=== PATIENT | male | born 1950 | race Caucasian/White ===

== ENCOUNTER → 2020-08-12 13:02 | Outpatient (CLI) | payer MEDICARE, OTHER, SELFPAY ==
--- NOTE | 2020-08-12 14:42 | DI.MRI.S_ITS ---
PROCEDURE: MR LUMBAR SPINE WO CON INDICATIONS: Left side sciatica w/ weakness TECHNIQUE: Noncontrast sagittal T1 spin echo and T2 fast echo, sagittal STIR, axial T1 and T2 fast spin echo through the lumbar spine. In cases with scoliosis, additional coronal T2 fast spin echo may be performed. COMPARISON: None. FINDINGS: Image quality: Excellent. Alignment and Curvature: No plain films are available for comparison, for numbering purposes. Thus, for the purposes of this examination, 5 lumbar type vertebral bodies will be presumed, as denoted on the montage panel. This should be confirmed and correlated with plain films, prior to any lumbar spinal intervention. There is loss of normal lumbar lordosis. There is mild grade 1 retrolisthesis of L2 on L3, L3 on L4, and L4 on L5. Bone Marrow: Marrow is of normal overall signal. No acute vertebral body compression fractures. Minimal reactive signal within the endplates adjacent to the L2-L3, L3-L4, and L4-L5 intervertebral discs. Spinal Cord: Conus medullaris terminates at the L1-L2 disc space level. Visualized cord demonstrates normal signal and size. Paraspinous Soft Tissues: No paravertebral masses. T12-L1: Mild facet and ligamentum flavum hypertrophy. No significant canal stenosis. Mild bilateral foraminal stenosis. L1-L2: Mild disc desiccation and diffuse disc bulge. Mild facet and ligamentum flavum hypertrophy. Mild epidural lipomatosis. Mild canal stenosis. Mild bilateral foraminal stenosis. L2-L3: Mild disc desiccation and diffuse disc bulge. Mild facet and ligamentum flavum hypertrophy. Mild epidural lipomatosis. Mild canal stenosis. Mild bilateral foraminal stenosis. L3-L4: Mild disc height loss and desiccation. Mild diffuse disc bulge with superimposed left posterolateral/intraforaminal disc extrusion, measuring roughly 10 mm craniocaudal by 6 mm anteroposterior by roughly 5 mm transverse. Mild facet and ligamentum flavum hypertrophy. Mild canal stenosis. Severe left and mild right foraminal stenosis. Left L3 nerve root compression. L4-L5: Moderate disc height loss and desiccation. Mild diffuse disc bulge. Mild facet and ligamentum flavum hypertrophy bilaterally. Mild canal stenosis. Moderate to severe right greater than left foraminal stenosis with mild right greater than left L4 nerve root compression. L5-S1: Mild disc desiccation and diffuse disc bulge. No significant canal, or foraminal stenosis. IMPRESSION: 1. 5 lumbar type vertebral bodies were presumed for the current report. Plain films of the lumbar spine are recommended for confirmation, prior to any lumbar spinal intervention. 2. Multilevel degenerative disc and facet disease, as well as ligamentum flavum hypertrophy and epidural lipomatosis. 3. Mild multilevel canal stenosis. 4. Multilevel foraminal stenoses, worst at L3-L4 and L4-L5 as described above where there is associated intraforaminal nerve root compression. Recommend correlation with clinical symptoms to ascertain relevance of these findings. Dictated by: Aleksey Castro M.D. on 08/12/2020 at 14:53 Approved by: Aleksey Castro M.D. on 08/12/2020 at 14:57
== END ==
PROVIDERS: Referring Provider Physician Assistant; Visit Provider Physician Assistant
DX: M51.16 Intervertebral disc disorders with radiculopathy, lumbar region (principal); M51.17 Intervertebral disc disorders with radiculopathy, lumbosacral region; M48.061 Spinal stenosis, lumbar region without neurogenic claudication; E88.2 Lipomatosis, not elsewhere classified
CPT/HCPCS: 72148

== ENCOUNTER → 2020-10-24 14:23 | Outpatient (CLI) | payer MEDICARE, OTHER, SELFPAY ==
--- NOTE | 2020-10-24 14:26 | DI.RAD.S_ITS ---
PROCEDURE: XR LUMBAR SPINE MIN 4V INDICATIONS: BACK PAIN TECHNIQUE: 5 views of the lumbar spine acquired, including flexion and extension views. COMPARISON: None. FINDINGS: Bones: 5 nonrib-bearing vertebrae are present. Trace multilevel retrolisthesis. Moderate multilevel disc degeneration, most notably at the L4-L5 and L5-S1 1 levels where there also is moderate facet joint arthropathy. No vertebral body compression fractures. No suspicious bony lesions. Soft tissues: Overlying bowel gas pattern is normal. No suspicious soft tissue calcifications. Cholecystectomy clips. Flexion/extension: There is normal range of motion, with preserved normal alignment. IMPRESSION: Multilevel spondylosis. Dictated by: Juan Alberto Joel RR Interpreted: Wilian Resendiz MD on 10/24/2020 at 14:39 Transcribed by: LAW on 10/24/2020 at 14:40 Approved by: Wilian Resendiz M.D. on 10/24/2020 at 15:21
== END ==
PROVIDERS: PCP Family Medicine; Referring Provider Family Medicine; Visit Provider Family Medicine
DX: M48.061 Spinal stenosis, lumbar region without neurogenic claudication (principal); M54.42 Lumbago with sciatica, left side; M47.816 Spondylosis without myelopathy or radiculopathy, lumbar region; M47.817 Spondylosis without myelopathy or radiculopathy, lumbosacral region; M51.26 Other intervertebral disc displacement, lumbar region
CPT/HCPCS: 72110; 99214

== ENCOUNTER → 2020-11-21 11:51 | Outpatient (CLI) | payer MEDICARE, OTHER, SELFPAY ==
[2020-11-21 21:08] LABS: COVID19 - ORCAS (NP or Nasal) Negative (Negative)
== END ==
PROVIDERS: PCP Family Medicine; Visit Provider Family Medicine
DX: Z20.822 Contact with and (suspected) exposure to COVID-19 (principal)
CPT/HCPCS: U0003

== ENCOUNTER 2020-11-22 09:27 | Outpatient (CLI) | payer MEDICARE, OTHER, SELFPAY ==
[2020-11-22] VITALS (9 sets, daily range): BP systolic 113–136; BP diastolic 56–70; PULSE 55–66; RESP 14–95; TEMP 36.6; O2SAT 94–98
--- NOTE | 2020-11-22 09:29 | DI.RAD.S_ITS ---
PROCEDURE: PAIN L/S TRANSFORAMINAL INJECT INDICATIONS: SPONDYLOSIS COMPARISON: None. FINDINGS: Fluoroscopic spot filming was performed to verify placement of spinal needles at the L3-L4 level(s), as labeled on the films. Appropriate location(s) of the needle tip(s) was confirmed by injection of iodinated contrast. Dictated by: Reynaldo Conroy M.D. on 11/28/2020 at 13:15 Approved by: Reynaldo Conroy M.D. on 11/28/2020 at 13:16
[2020-11-22] MEDS: fentaNYL 100 MCG/2 ML INJ 50 MCG IV (10:32)
[2020-11-22] MEDS: MIDAZOLAM 5 MG/5 ML VIAL IV (10:32)
[2020-11-22] MEDS: BUPIVACAINE 0.25% (PF) VIAL 2 ML INJ (10:40)
[2020-11-22] MEDS: IOPAMIDOL 15 ML VIAL 3 ML INJ (10:41)
[2020-11-22] MEDS: BETAMETHASONE 30 MG/5 ML MDV 6 MG INJ (10:41)
[2020-11-22] MEDS: DEXAMETHASONE 10 MG/ML VIAL 20 MG INJ (10:42)
--- NOTE | 2020-11-22 10:48 | P.PCN_ITS ---
Date/Time/Diagnoses Date of procedure: 11/22/20 Time of procedure: 10:48 Pre-procedure diagnosis: 1. FORAMINAL STENOSIS WITH LE SYMPTOMS Post-procedure diagnosis: same Procedure Notes Procedure: 1. FLUOROSCOPICALLY GUIDED CONTRAST CONTROLLED TRANSFORAMINAL EPIDURAL STEROID INJECTION - LEFT L3/4 TFESI Indications: Gaston is referred by Dr. Joy for treatment of Foraminal Stenosis with left LE Symptoms Physician: Anibal An Total Fluoroscopy time (seconds): 7 Total sedation minutes: 12 Complications: none Procedure in detail & Post-procedure care: FINDINGS Foraminal Nerve Root Compression secondary to disc disease and facet hypertrophy DESCRIPTION OF PROCEDURE Following review of allergy and review of potential side effects and complications, including, but not necessarily limited to, infection, allergic reaction, local tissue breakdown, stroke, temporary or permanent nerve injury, paralysis, and possible , the patient indicated that the patient understood and agreed to proceed. An informed consent document was signed by the patient, witnessed by a nurse, and placed in the patient's chart. Additionally, other treatment options including medications, modalities, and physical therapy were reviewed with the patient. After review of previous anaesthesic history and IV conscious sedation the patient was deemed safe to proceed with today?s procedure with IV conscious sedation as ASA class II designation. Safety time-out was performed to confirm patient ID, procedure to be performed and site of procedure. IV sedation was accomplished with a combination of 2mg of Versed and 50mcg of Fentanyl was administered by the RN after DO order, titrated to patient comfort during the course of the procedure while the patient remained responsive to all verbal commands In the prone position following sterile prep and drape of the lumbar region, the left L3/4 posterior neuroforamen was identified fluoroscopically. The skin was anesthetized via a 25-gauge 1.5-inch needle with 1% lidocaine solution. At this point, a 25-gauge 3.5-inch spinal needle was atraumatically introduced and advanced under fluoroscopic guidance through the posterior left L3/4 neurofora men to approximately the anterior aspect of the canal. Depth was confirmed on lateral view. Following negative aspiration, injection of approximately 1.5 cc of Isovue 200 under live fluoroscopy in the AP view confirmed excellent flow along the nerve root, into the epidural space without vascular or intrathecal uptake observed Radiological data, including multiple fluoroscopic views of the lumbosacral spine, reveal a spinal needle at the left L3/4 posterior neuroforamen. Subsequent views show flow of contrast material flowing superiorly and inferiorly along the nerve root confirming epidural flow. Subsequently, a test dose of 1.5cc of 1% lidocaine solution was administered and patient was observed for two minutes for signs or symptoms of complications, including abdominal pain, shortness of breath, bilateral upper or lower extremity weakness, nausea and vomiting, prior to steroid injection. At this point, a total of 3cc or 20mg of dexamethasone and 6mg betamethasone was inject ed without incident. The patient tolerated the procedure well without signs or symptoms of complications prior to transfer to the recovery area continued monitoring without incident. The patient was then transferred to the recovery area where they were observed for an appropriate time after the injection. The patient reported a VAS score of 7 prior to the procedure and a post-procedure VAS of 0. POST OP INSTRUCTIONS The patient was provided a Pain Log to continue to record their response to the target-specific procedure prior to follow-up visit with their referring physician. Additionally, specific post-injection care instructions and a contact number to our office were provided if concerns arise regarding possible complications associated with the procedure are suspected.
== END 2020-11-22 11:03 | disposition home or self-care (01) ==
LOC: RAD 09:28
PROVIDERS: PCP Family Medicine; Referring Provider Physical Medicine & Rehabilitation; Visit Provider Physical Medicine & Rehabilitation
DX: M48.061 Spinal stenosis, lumbar region without neurogenic claudication (principal); M51.16 Intervertebral disc disorders with radiculopathy, lumbar region
CPT/HCPCS: 64483; 99152; J0702; J1100; J2250; J3010

== ENCOUNTER 2020-12-14 21:43 | Emergency (ER) | payer MEDICARE, OTHER, SELFPAY ==
[2020-12-14] VITALS (14 sets, daily range): BP systolic 102–137; BP diastolic 53–76; PULSE 60–68; RESP 14–18; TEMP 36.6; O2SAT 96–100
--- NOTE | 2020-12-14 21:51 | DI.RAD.S_ITS ---
PROCEDURE: XR CHEST 1V INDICATIONS: chest pain TECHNIQUE: One view of the chest was acquired. COMPARISON: None. FINDINGS: Surgical changes and devices: None. Lungs and pleura: Lungs are clear. No pleural effusions or pneumothorax. Mediastinum: Mediastinal contours appear normal. Heart size is normal. Bones and chest wall: No suspicious bony lesions. Overlying soft tissues appear unremarkable. IMPRESSION: No acute cardiopulmonary disease process. Dictated by: Doris Cox MD, PhD on 12/15/2020 at 9:07 Approved by: Doris Cox MD, PhD on 12/15/2020 at 9:07
[2020-12-14 21:58] LABS: Add Manual Diff / Slide Review NO; Basophils Absolute Auto 0 /uL (0-100); Basophils Percent Auto 0.5 % (0-2); Eosinophils Absolute Auto 200 /uL (0-450); Eosinophils Percent Auto 2.2 % (2-4); Hematocrit 39.8 % (41-53); Hemoglobin 13.2 g/dL (13.5-17.5); Lymphocytes Absolute Auto 1300 /uL (1100-4500); Lymphocytes Percent Auto 13.4 % (25-40); Mean Corpuscular HGB Conc 33.2 % (30-36); Mean Corpuscular Hemoglobin 29.5 PG (26-34); Monocytes Absolute Auto 900 /uL (0-900); Monocytes Percent Auto 9.5 % (3-14); Neutrophils Absolute Auto 7400 /uL (1500-7000); Neutrophils Percent Auto 74.4 % (50-75); Platelet Count 258 X10^3/uL (150-400); Red Blood Cell Count 4.48 X10^6/uL (4.5-5.9); Red Cell Distribution Width 13.9 % (11.6-14.8)
[2020-12-14] MEDS: NITROGLYCERIN 0.4 MG SL TAB SL ×3 (21:59→22:13)
[2020-12-14 22:05] LABS: Alanine Aminotransferase 31 IU/L (<50); Albumin 4.1 g/dL (3.5-5.0); Albumin Globulin Ratio 1.5 (1.0-2.8); Alkaline Phosphatase 58 U/L (38-126); Aspartate Aminotransferase 35 IU/L (17-59); Bilirubin Total 0.4 mg/dL (0.2-1.3); Blood Urea Nitrogen 26 mg/dL (9-20); Calcium 9.1 mg/dL (8.4-10.2); Carbon Dioxide 26 mmol/L (22-32); Chloride 108 mmol/L (98-107); Creatine Kinase 85 U/L (55-170); Estimated Glomerular Filt Rate > 60.0 mL/min (>60); Globulin 2.7 g/dL (1.7-4.1); Glucose 100 mg/dL (80-110); HEMOLYSIS 28 (0-50); Lipase 228 U/L (23-300); Sodium 140 mmol/L (137-145); Total Protein 6.8 g/dL (6.3-8.2)
[2020-12-14 22:08] LABS: COVID19 -Nasal RAPID Negative (Negative)
[2020-12-14 22:16] LABS: Troponin I < 0.012 ng/mL (0.01-0.034)
--- NOTE | 2020-12-14 22:53 | ED_ITS ---
HPI - Chest Pain General Chief Complaint: Chest Pain Stated Complaint: chest pain Time Seen by Provider: 12/14/20 21:53 Source: patient Mode of arrival: Ambulatory History of Present Illness HPI narrative: 70-year-old gentleman with a history of a glaucoma presents with acute onset chest pain approximately 1-1/2 hours prior to arrival. He describes the pain as right-sided sharp radiating down the right arm and is now progressing up the neck bilaterally. He notes that he was was at his usual activity level which is quite active today he had been working on his roof when he began to develop the pain. Was not associated with orthopnea, dyspnea, nausea, diaphoresis. He notes that yesterday he when out for a hike with a 20 lb pack on which is something that he routinely does and describes being significantly more fatigued than he ever had been in the past. He has no prior history of cardiac disease, hypertension or stroke. [place] boat in to [employer]. EN route he took 1 full and 3 baby aspirin. He describes the pain is fairly consistent 3 to 4/10 since the onset. Related Data Home Medications Medication Instructions Recorded Confirmed latanoprost 0.005 % eye drops drp EYE-BOTH DAILY ml 08/03/20 10/24/20 cholecalciferol (vitamin D3) 50 50 mcg PO DAILY 10/24/20 10/24/20 mcg (2,000 unit) capsule Previous Rx's Medication Instructions Recorded gabapentin 300 mg capsule 300 mg PO .COMPLEX #90 cap 10/24/20 methylprednisolone 4 mg tablets in See Rx Instructions PO PER PKG DIR 10/24/20 a dose pack (Medrol (Bonifacio)) #21 ea colchicine 0.6 mg tablet 0.6 mg PO BID #90 tab 12/15/20 Allergies Allergy/AdvReac Type Severity Reaction Status Date / Time No Known Drug Allergies Allergy Verified 10/24/20 15:51 Review of Systems Review of Systems Narrative: Remainder of complete review of systems is otherwise unremarkable except for that included in the HPI. Patient History Medical History Back pain Chicken pox Foraminal stenosis of lumbar region Fractures (~1965) Glaucoma Hearing loss Herniated nucleus pulposus, L3-4 left History of elevated PSA (~2014) Lumbar spine pain Mumps Personal history of prostate cancer (~2014) Tinnitus Surgical History Anesthesia H/O radical prostatectomy (~2014) History of cholecystectomy (~2014) History of surgery on arm (~1964) Family History Mother Mental health problem Social History Smoking Status: Never smoker Smoking Status: Never smoker Exam Narrative Exam Narrative: General: Healthy appearing, in mild distress. Able to give a complete and coherent history. Well-nourished well-developed HEENT: Moist mucous membranes, normal sclera with reactive pupils, Neck: No JVD, supple Respiratory: Lungs are clear to auscultation, no wheezing no rales no rhonchi. Full and symmetrical air movement Cardiac: Regular rate and rhythm no murmurs no bruits Abdomen: Soft, nontender, good bowel tones, no flank pain Skin: Warm and dry, no rashes, no diaphoresis Neurologic: Grossly neurologically intact with no obvious asymmetries or abnormalities Extremities: No trauma, well perfused Psych: Cooperative, appropriate insight and affect Initial Vital Signs Initial Vital Signs: Vital Signs Pulse Rate 65 12/14/20 21:51 Respiratory Rate 16 12/14/20 21:51 Pulse Oximetry 98 12/14/20 21:51 Course Orders Ordered: ED Orders 12/14/20 21:46 COVID19 -Nasal swab/Pre-Proc Stat 12/14/20 21:49 EKG-12 Lead Stat 12/14/20 21:50 Complete Blood Count AUTO DIFF Stat Comprehensive Metabolic Panel Stat Lipase Stat Troponin & CK Cardiac Panel Stat 12/14/20 21:51 XR chest 1V Stat 12/15/20 00:06 EKG-12 Lead Stat 12/15/20 00:08 Trop I [Troponin I] Stat Discontinued Medications Colchicine (Colchicine 0.6 Mg Tablet) 0.6 mg PO NOW ONE Stop: 12/15/20 00:51 Last Admin: 12/15/20 01:05 Dose: 0.6 mg Documented by: SHANNA Ketorolac Tromethamine (Ketorolac 30 Mg/Ml Vial) 15 mg IV NOW ONE Stop: 12/14/20 23:10 Last Admin: 12/14/20 23:14 Dose: 15 mg Documented by: SHANNA Nitroglycerin (Nitroglycerin 0.4 Mg Sl Tab) 0.4 mg SL [id number] PRN PRN Reason: Chest Pain Last Admin: 12/14/20 22:13 Dose: 0.4 mg Documented by: Admin: 12/14/20 22:06 Dose: 0.4 mg Documented by: Admin: 12/14/20 21:59 Dose: 0.4 mg Documented by: OSVALDO Vital Signs Vital signs: Vital Signs - 8 hr 12/14/20 21:51 12/14/20 21:58 12/14/20 21:59 Temperature 97.9 F Pulse Rate 65 64 63 Respiratory Rate 16 18 Blood Pressure 137/76 137/76 Pulse Oximetry 98 100 12/14/20 22:00 12/14/20 22:06 12/14/20 22:10 Temperature Pulse Rate 62 65 67 Respiratory Rate 16 15 17 Blood Pressure 136/65 114/58 L 109/57 L Pulse Oximetry 97 96 97 12/14/20 22:13 12/14/20 22:15 12/14/20 22:20 Temperature Pulse Rate 68 64 66 Respiratory Rate 16 14 Blood Pressure 109/59 L 115/56 L 114/53 L Pulse Oximetry 96 96 12/14/20 22:25 12/14/20 22:30 12/14/20 22:35 Temperature Pulse Rate 64 61 60 Respiratory Rate 17 15 16 Blood Pressure 115/56 L 102/56 L 112/55 L Pulse Oximetry 97 96 97 12/14/20 22:40 12/14/20 22:45 Temperature Pulse Rate 61 60 Respiratory Rate 15 14 Blood Pressure 117/59 L 113/55 L Pulse Oximetry 97 97 MDM - Chest Pain Lab Data Result diagrams: 12/14/20 21:50 12/14/20 21:50 Labs: Lab Results 12/14/20 12/14/20 12/14/20 Range/Units 21:46 21:50 21:50 WBC 10.0 (4.5-11.0) X10^3/uL RBC 4.48 L (4.5-5.9) X10^6/uL Hgb 13.2 L (13.5-17.5) g/dL Hct 39.8 L (41-53) % MCV 89.0 (80-100) fL MCH 29.5 (26-34) PG MCHC 33.2 (30-36) % RDW 13.9 (11.6-14.8) % Plt Count 258 (150-400) X10^3/uL Neut % (Auto) 74.4 (50-75) % Lymph % (Auto) 13.4 L (25-40) % [place] % (Auto) 9.5 (3-14) % Eos % (Auto) 2.2 (2-4) % Baso % (Auto) 0.5 (0-2) % Neut # (Auto) 7400 H (6591-7753) /uL Lymph # (Auto) 1300 (8756-8951) /uL [place] # (Auto) 900 (0-900) /uL Eos # (Auto) 200 (0-450) /uL Baso # (Auto) 0 (0-100) /uL Sodium 140 (137-145) mmol/L Potassium 4.0 (3.4-5.1) mmol/L Chloride 108 H (98-107) mmol/L Carbon Dioxide 26 (22-32) mmol/L BUN 26 H (9-20) mg/dL Creatinine 0.65 L (0.66-1.25) mg/dL Estimated GFR > 60.0 (>60) mL/min BUN/Creatinine Ratio 40.0 H (6-22) Glucose 100 (80-110) mg/dL Calcium 9.1 (8.4-10.2) mg/dL Total Bilirubin 0.4 (0.2-1.3) mg/dL AST 35 (17-59) IU/L ALT 31 (<50) IU/L Alkaline Phosphatase 58 (38-126) U/L Total Creatine Kinase 85 (55-170) U/L CK-MB (CK-2) TNP CK-MB (CK-2) Rel Index TNP Troponin I < 0.012 (0.01-0.034) ng/mL Total Protein 6.8 (6.3-8.2) g/dL Albumin 4.1 (3.5-5.0) g/dL Globulin 2.7 (1.7-4.1) g/dL Albumin/Globulin Ratio 1.5 (1.0-2.8) Lipase 228 (23-300) U/L SARS-CoV-2 (PCR) Negative (Negative) 12/15/20 Range/Units 00:08 WBC (4.5-11.0) X10^3/uL RBC (4.5-5.9) X10^6/uL Hgb (13.5-17.5) g/dL Hct (41-53) % MCV (80-100) fL MCH (26-34) PG MCHC (30-36) % RDW (11.6-14.8) % Plt Count (150-400) X10^3/uL Neut % (Auto) (50-75) % Lymph % (Auto) (25-40) % [place] % (Auto) (3-14) % Eos % (Auto) (2-4) % Baso % (Auto) (0-2) % Neut # (Auto) (2638-2488) /uL Lymph # (Auto) (1094-3960) /uL [place] # (Auto) (0-900) /uL Eos # (Auto) (0-450) /uL Baso # (Auto) (0-100) /uL Sodium (137-145) mmol/L Potassium (3.4-5.1) mmol/L Chloride (98-107) mmol/L Carbon Dioxide (22-32) mmol/L BUN (9-20) mg/dL Creatinine (0.66-1.25) mg/dL Estimated GFR (>60) mL/min BUN/Creatinine Ratio (6-22) Glucose (80-110) mg/dL Calcium (8.4-10.2) mg/dL Total Bilirubin (0.2-1.3) mg/dL AST (17-59) IU/L ALT (<50) IU/L Alkaline Phosphatase (38-126) U/L Total Creatine Kinase (55-170) U/L CK-MB (CK-2) CK-MB (CK-2) Rel Index Troponin I < 0.012 (0.01-0.034) ng/mL Total Protein (6.3-8.2) g/dL Albumin (3.5-5.0) g/dL Globulin (1.7-4.1) g/dL Albumin/Globulin Ratio (1.0-2.8) Lipase (23-300) U/L SARS-CoV-2 (PCR) (Negative) Imaging Data Chest x-ray: Radiologist's Impression: No active cardiopulmonary pathology evident Nancy Araujo MD ECG Data Interpretation: Sinus rhythm at a rate of 64 Normal axis, normal intervals Diffuse ST elevation most leads repeat at 2150 Sinus rhythm at a rate of 58 Normal intervals normal axis Clear ST elevation in all leads consistent with acute pericarditis MDM Narrative Medical decision making narrative: 7-year-old gentleman presents with acute onset right-sided chest pain. Lab workup is unremarkable. First and 2nd troponins are unremarkable. No evidence of significant infiltrate or cardiomegaly on chest x-ray. No evidence of COVID and no recent infection. Initial EKG with mild ST elevation in most leads and repeat with significant ST elevation in all leads entirely consistent with the clinical presentation of pericarditis. He is improved after Toradol and is also started on colchicine. Care is briefly reviewed with Dr. Méndez. Recommended 3 weeks of aggressive nonsteroidals and colchicine dosing, 600 mg of ibuprofen 3 times a day and 0.6 mg of colchicine b.i.d.. Beginning slow taper after that as pain tolerates. If pain increases with taper than the patient will need to go back to the most recent dose where he was pain free. Will ask him to follow-up with his primary care physician and as long as he continues to improve likely will not need any additional cardiology intervention. All of this is explained to the patient, questions are answered and he is safe for home discharge Discharge Plan Departure Patient Disposition: Home Clinical Impression: Pericarditis Qualifiers: Pericarditis type: idiopathic Chronicity: acute Qualified Code(s): I30.0 - Acute nonspecific idiopathic pericarditis Instructions: DI for Pericarditis Activity Restrictions/Additional Instructions: Thank you for coming in today You do not have COVID, pneumonia, collapsed lung, heart attack or heart attack like syndrome. You do have pericarditis. Pericarditis is inflammation around the lining of your heart. It hurts in exactly the weight your describing and tends to resolve by itself. It can be associated with exercise, viruses and can be seen after heart attacks as well Treatment for this is directed at treating the inflammation. You will need fairly high doses of anti-inflammatories for the 1st 3 weeks and then you can taper them down as your pain allows. I am going to recommend ibuprofen 600 mg 3 times a day for 3 weeks and then slowly tapering down, decreasing by 1 pill a day, until you no longer needing the ibuprofen. The colchicine needs to be twice a day for the 1st 3 weeks and after that you can decrease to once daily for an additional 3 weeks - this prescription was electronically transmitted to [facility] at any point in decreasing the medication your symptoms are increasing, you need to return to the higher level for a few more days before attemping to resume tapering. Please follow-up with your primary care physician. As long as you are improving you likely will not need additional cardiology follow-up. If you are having increasing symptoms or additional problems Dr. Joy will likely assist you in arranging for Cardiology consultation. If you have any acute changes or findings or develop new symptoms, please return to the emergency department Prescriptions: New colchicine 0.6 mg tablet 0.6 mg PO BID Qty: 90 RF: 1 No Action latanoprost 0.005 % drops EYE-BOTH DAILY RF: 0 cholecalciferol (vitamin D3) 50 mcg (2,000 unit) capsule 50 mcg PO DAILY RF: 0 gabapentin 300 mg capsule 300 mg PO .COMPLEX Qty: 90 RF: 2 methylprednisolone [Medrol (Bonifacio)] 4 mg tablets,dose pack See Rx Instructions PO PER PKG DIR Qty: 21 RF: 0 Referrals: Shimon Joy, [Primary Care Provider] -
[2020-12-14] MEDS: KETOROLAC 30 MG/ML VIAL 15 MG IV (23:14)
[2020-12-15] VITALS (25 sets, daily range): BP systolic 96–112; BP diastolic 51–59; PULSE 55–60; RESP 16–23; O2SAT 96–97
[2020-12-15 00:35] LABS: Troponin I < 0.012 ng/mL (0.01-0.034)
[2020-12-15] MEDS: COLCHICINE 0.6 MG TABLET PO (01:05)
== END 2020-12-15 02:27 | disposition home or self-care (01) ==
PROVIDERS: Emergency Provider Emergency Medicine; PCP Family Medicine
DX: I30.0 Acute nonspecific idiopathic pericarditis (principal); Z20.822 Contact with and (suspected) exposure to COVID-19
CPT/HCPCS: 36415; 71045; 80053; 82550; 83690; 84484; 85025; 87635; 93005; 93010; 96374; 99284; C9803; J1885

== ENCOUNTER → 2021-03-13 13:03 | Outpatient (CLI) | payer MEDICARE, OTHER, SELFPAY ==
[2021-03-13 16:38] LABS: COVID19 -Nasal RAPID Negative (Negative)
== END ==
PROVIDERS: PCP Family Medicine; Referring Provider Physical Medicine & Rehabilitation; Visit Provider Physical Medicine & Rehabilitation
DX: Z20.822 Contact with and (suspected) exposure to COVID-19 (principal)
CPT/HCPCS: 87635; C9803

== ENCOUNTER 2021-03-14 10:01 | Outpatient (CLI) | payer MEDICARE, OTHER, SELFPAY ==
[2021-03-14] VITALS (8 sets, daily range): BP systolic 116–154; BP diastolic 69–74; PULSE 56–66; RESP 11–16; TEMP 36.7; O2SAT 99–100
--- NOTE | 2021-03-14 10:03 | DI.RAD.S_ITS ---
PROCEDURE: PAIN L/S TRANSFORAMINAL INJECT INDICATIONS: SPONDYLOSIS COMPARISON: [facility], , PAIN L/S TRANSFORAMINAL INJECT, 11/22/2020, 10:38. FINDINGS: Fluoroscopic spot filming was performed to verify placement of spinal needles on the left at the L3-L4 level and the L4-L5 level, as labeled on the films. Appropriate location of the needle tip was confirmed by injection of iodinated contrast. IMPRESSION: Intraprocedural examination within normal limits. Dictated by: Ruiz Bush M.D. on 03/14/2021 at 11:35 Approved by: Ruiz Bush M.D. on 03/14/2021 at 11:35
[2021-03-14] MEDS: MIDAZOLAM 5 MG/5 ML VIAL IV (11:28)
[2021-03-14] MEDS: fentaNYL 100 MCG/2 ML INJ 50 MCG IV (11:28)
[2021-03-14] MEDS: BUPIVACAINE 0.25% (PF) VIAL 2 ML INJ (11:33)
[2021-03-14] MEDS: IOPAMIDOL 15 ML VIAL 3 ML INJ (11:33)
[2021-03-14] MEDS: BETAMETHASONE 30 MG/5 ML MDV 12 MG INJ (11:34)
[2021-03-14] MEDS: DEXAMETHASONE 10 MG/ML VIAL 20 MG INJ (11:34)
--- NOTE | 2021-03-14 11:43 | P.PCN_ITS ---
Date/Time/Diagnoses Date of procedure: 03/14/21 Time of procedure: 11:43 Pre-procedure diagnosis: 1. FORAMINAL STENOSIS WITH LE SYMPTOMS Post-procedure diagnosis: same Procedure Notes Procedure: 1. FLUOROSCOPICALLY GUIDED CONTRAST CONTROLLED TRANSFORAMINAL EPIDURAL STEROID INJECTION - LEFT L4/5 Indications: Gaston is referred by Dr. Joy for treatment of Foraminal Stenosis with Left LE Symptoms Physician: Anibal An Total Fluoroscopy time (seconds): 9 Total sedation minutes: 9 Complications: none Procedure in detail & Post-procedure care: FINDINGS Foraminal Nerve Root Compression secondary to disc disease and facet hypertrophy DESCRIPTION OF PROCEDURE Following review of allergy and review of potential side effects and complications, including, but not necessarily limited to, infection, allergic reaction, local tissue breakdown, stroke, temporary or permanent nerve injury, paralysis, and possible , the patient indicated that the patient understood and agreed to proceed. An informed consent document was signed by the patient, witnessed by a nurse, and placed in the patient's chart. Additionally, other treatment options including medications, modalities, and physical therapy were reviewed with the patient. After review of previous anaesthesic history and IV conscious sedation the patient was deemed safe to proceed with today?s procedure with IV conscious sedation as ASA class II designation. Safety time-out was performed to confirm patient ID, procedure to be performed and site of procedure. IV sedation was accomplished with a combination of 2mg of Versed and 50mcg of Fentanyl administered by the RN after DO order, titrated to patient comfort during the course of the procedure while the patient remained responsive to all verbal commands In the prone position following sterile prep and drape of the lumbar region, the left L4/5 posterior neuroforamen was identified fluoroscopically. The skin was anesthetized via a 25-gauge 1.5-inch needle with 1% lidocaine solution. At this point, a 25-gauge 3.5-inch spinal needle was atraumatically introduced and advanced under fluoroscopic guidance through the posterior left L4/5 neuroforamen to approximately the anterior aspect of the canal. Depth was confirmed on lateral view. Following negative aspiration, injection of approximately 1.5 cc of Isovue 200 under live fluoroscopy in the AP view confirmed excellent flow along the nerve root, into the epidural space without vascular or intrathecal uptake observed Radiological data, including multiple fluoroscopic views of the lumbosacral spine, reveal a spinal needle at the left L4/5 posterior neuroforamen. Subsequent views show flow of contrast material flowing superiorly and inferiorly along the nerve root confirming epidural flow. Subsequently, a test dose of 1.5 cc of 1% lidocaine solution was administered and patient was observed for two minutes for signs or symptoms of complications, including abdominal pain, shortness of breath, bilateral upper or lower extremity weakness, nausea and vomiting, prior to steroid injection. At this point, a total of 3cc or 20mg of dexamethasone and 6mg of betamethasone was injected without incident. The procedure tolerated the procedure well without signs or symptoms of complications prior to transfer to the recovery area continued monitoring without incident. The patient was then transferred to the recovery area where they were observed for an appropriate time after the injection. The patient reported a VAS score of 7 prior to the procedure and a post- procedure VAS of 0. POST OP INSTRUCTIONS The patient was provided a Pain Log to continue to record their response to the target-specific procedure prior to follow-up visit with their referring physician. Additionally, specific post-injection care instructions and a contact number to our office were provided if concerns arise regarding possible complications associated with the procedure are suspected.
--- NOTE | 2021-03-14 11:44 | P.PCN_ITS ---
Date/Time/Diagnoses Date of procedure: 03/14/21 Time of procedure: 11:44 Pre-procedure diagnosis: 1. FORAMINAL STENOSIS WITH LE SYMPTOMS Post-procedure diagnosis: same Procedure Notes Procedure: 1. FLUOROSCOPICALLY GUIDED CONTRAST CONTROLLED TRANSFORAMINAL EPIDURAL STEROID INJECTION - LEFT L3/4 TFESI Indications: Gaston is referred by Dr. Joy for treatment of Foraminal Stenosis with left LE Symptoms Physician: Anibal An Total Fluoroscopy time (seconds): 9 Total sedation minutes: 9 Complications: none Procedure in detail & Post-procedure care: FINDINGS Foraminal Nerve Root Compression secondary to disc disease and facet hypertrophy DESCRIPTION OF PROCEDURE Following review of allergy and review of potential side effects and complications, including, but not necessarily limited to, infection, allergic reaction, local tissue breakdown, stroke, temporary or permanent nerve injury, paralysis, and possible , the patient indicated that the patient understood and agreed to proceed. An informed consent document was signed by the patient, witnessed by a nurse, and placed in the patient's chart. Additionally, other treatment options including medications, modalities, and physical therapy were reviewed with the patient. After review of previous anaesthesic history and IV conscious sedation the patient was deemed safe to proceed with today?s procedure with IV conscious sedation as ASA class II designation. Safety time-out was performed to confirm patient ID, procedure to be performed and site of procedure. IV sedation was accomplished with a combination of 2mg of Versed and 50mcg of Fentanyl was administered by the RN after DO order, titrated to patient comfort during the course of the procedure while the patient remained responsive to all verbal com mands In the prone position following sterile prep and drape of the lumbar region, the left L3/4 posterior neuroforamen was identified fluoroscopically. The skin was anesthetized via a 25-gauge 1.5-inch needle with 1% lidocaine solution. At this point, a 25-gauge 3.5-inch spinal needle was atraumatically introduced and advanced under fluoroscopic guidance through the posterior left L3/4 neurofo ramen to approximately the anterior aspect of the canal. Depth was confirmed on lateral view. Following negative aspiration, injection of approximately 1.5 cc of Isovue 200 under live fluoroscopy in the AP view confirmed excellent flow along the nerve root, into the epidural space without vascular or intrathecal uptake observed Radiological data, including multiple fluoroscopic views of the lumbosacral spine, reveal a spinal needle at the left L3/4 posterior neuroforamen. Subsequent views show flow of contrast material flowing superiorly and inferiorly along the nerve root confirming epidural flow. Subsequently, a test dose of 1.5cc of 1% lidocaine solution was administered and patient was observed for two minutes for signs or symptoms of complications, including abdominal pain, shortness of breath, bilateral upper or lower extremity weakness, nausea and vomiting, prior to steroid injection. At this point, a total of 3cc or 20mg of dexamethasone and 6mg betamethasone was inje cted without incident. The patient tolerated the procedure well without signs or symptoms of complications prior to transfer to the recovery area continued monitoring without incident. The patient was then transferred to the recovery area where they were observed for an appropriate time after the injection. The patient reported a VAS score of 7 prior to the procedure and a post-procedure VAS of 0. POST OP INSTRUCTIONS The patient was provided a Pain Log to continue to record their response to the target-specific procedure prior to follow-up visit with their referring physician. Additionally, specific post-injection care instructions and a contact number to our office were provided if concerns arise regarding possible complications associated with the procedure are suspected.
== END 2021-03-14 12:09 | disposition home or self-care (01) ==
LOC: RAD 10:02
PROVIDERS: PCP Family Medicine; Referring Provider Physical Medicine & Rehabilitation; Visit Provider Physical Medicine & Rehabilitation
DX: M48.061 Spinal stenosis, lumbar region without neurogenic claudication; M51.16 Intervertebral disc disorders with radiculopathy, lumbar region
CPT/HCPCS: 64483; 64484; J0702; J1100; J2250; J3010

== ENCOUNTER → 2021-05-01 10:06 | Outpatient (CLI) | payer MEDICARE, OTHER, SELFPAY ==
--- NOTE | 2021-05-01 | DI.CT.S_ITS ---
PROCEDURE: CT MASTOID TEMPORAL INDICATIONS: Sensorineural hearing loss, bilateral COMPARISON: None. TECHNIQUE: Noncontrast 0.6 mm thick direct axial and coronal sections acquired through each temporal bone separately. FINDINGS: Image quality: Excellent. RIGHT: External auditory canal: Canal has a normal appearance. Middle ear: The middle ear structures, including the ossicles and tympanic membrane, appear normal. No abnormal fluid or soft tissue density. Inner ear: Inner ear is normally formed and appears unremarkable. Facial nerve appears normal throughout is course. Mastoids: Mastoid air cells are clear. LEFT: External auditory canal: Canal has a normal appearance. Middle ear: The middle ear structures, including the ossicles and tympanic membrane, appear normal. No abnormal fluid or soft tissue density. Inner ear: Inner ear is normally formed and appears unremarkable. Facial nerve appears normal throughout its course. Mastoids: Mastoid air cells are clear. MISCELLANEOUS: Visualized surrounding bones appear unremarkable. Visualized intracranial structures, including the cerebellopontine angle cisterns, appear normal. IMPRESSION: Normal bilateral temporal bone CT. Approved by: Alec Perales M.D. on 05/01/2021 at 11:10
== END ==
PROVIDERS: PCP Family Medicine; Referring Provider Otolaryngology Otology & Neurotology; Visit Provider Otolaryngology Otology & Neurotology
DX: H90.3 Sensorineural hearing loss, bilateral (principal)
CPT/HCPCS: 70480

== ENCOUNTER → 2021-05-11 11:02 | Outpatient (CLI) | payer MEDICARE, OTHER, SELFPAY ==
[2021-05-11 18:58] LABS: Appearance Urine UA CLEAR; Bilirubin Urine UA NEGATIVE (NEGATIVE); Color Urine UA YELLOW; Glucose Urine UA NEGATIVE (Negative); Ketones Urine UA NEGATIVE (NEGATIVE); Leukocyte Esterase Urine UA NEGATIVE (NEGATIVE); Nitrite Urine UA NEGATIVE (Negative); Occult Blood Urine UA NEGATIVE (Negative); Protein Urine UA NEGATIVE (Negative); Urobilinogen Urine UA 0.2 E.U./dL (0.2); pH Urine UA 6.5 (4.5-8.0)
[2021-05-11 19:23] LABS: Add Manual Diff / Slide Review NO; Basophils Absolute Auto 0 /uL (0-100); Basophils Percent Auto 0.9 % (0-2); Eosinophils Absolute Auto 100 /uL (0-450); Eosinophils Percent Auto 2.7 % (2-4); Hematocrit 38.1 % (41-53); Lymphocytes Absolute Auto 1200 /uL (1100-4500); Lymphocytes Percent Auto 30.6 % (25-40); Mean Corpuscular Volume 88.1 fL (80-100); Monocytes Absolute Auto 400 /uL (0-900); Monocytes Percent Auto 10.1 % (3-14); Neutrophils Absolute Auto 2300 /uL (1500-7000); Neutrophils Percent Auto 55.7 % (50-75); Platelet Count 244 X10^3/uL (150-400); Red Blood Cell Count 4.33 X10^6/uL (4.5-5.9); Red Cell Distribution Width 14.1 % (11.6-14.8); White Blood Cell Count 4.1 X10^3/uL (4.5-11.0)
[2021-05-11 19:40] LABS: Alanine Aminotransferase 30 IU/L (<50); Albumin 3.8 g/dL (3.5-5.0); Albumin Globulin Ratio 1.5 (1.0-2.8); Alkaline Phosphatase 45 U/L (38-126); Aspartate Aminotransferase 30 IU/L (17-59); Bilirubin Total 0.5 mg/dL (0.2-1.3); Blood Urea Nitrogen 18 mg/dL (9-20); Calcium 9.3 mg/dL (8.4-10.2); Carbon Dioxide 33 mmol/L (22-32); Chloride 105 mmol/L (98-107); Estimated Glomerular Filt Rate > 60.0 mL/min (>60); Globulin 2.6 g/dL (1.7-4.1); Glucose 80 mg/dL (80-110); HEMOLYSIS < 15 (0-50); Potassium 4.4 mmol/L (3.4-5.1); Sodium 139 mmol/L (137-145); Total Protein 6.4 g/dL (6.3-8.2)
[2021-05-12 23:38] LABS: PSA Ultrasensitive <0.006 ng/mL (0.000-4.000)
== END ==
PROVIDERS: PCP Family Medicine; Referring Provider Physician Assistant Medical; Visit Provider Physician Assistant Medical
DX: M54.42 Lumbago with sciatica, left side (principal); Z85.46 Personal history of malignant neoplasm of prostate; M54.9 Dorsalgia, unspecified
CPT/HCPCS: 80053; 81003; 84153; 85025

== ENCOUNTER → 2021-08-01 08:58 | Outpatient (CLI) | payer MEDICARE, OTHER, SELFPAY ==
[2021-08-01 19:45] LABS: COVID19 - ORCAS (NP or Nasal) Negative (Negative)
== END ==
PROVIDERS: PCP Family Medicine; Visit Provider Physician Assistant
DX: Z01.812 Encounter for preprocedural laboratory examination (principal); Z20.822 Contact with and (suspected) exposure to COVID-19
CPT/HCPCS: C9803; U0003

== ENCOUNTER → 2022-03-14 07:04 | Outpatient (CLI) | payer MEDICARE, OTHER, SELFPAY ==
[2022-03-14 20:12] LABS: COVID19 - ORCAS (NP or Nasal) Negative (Negative)
== END ==
PROVIDERS: PCP Family Medicine; Visit Provider Physician Assistant
DX: Z01.812 Encounter for preprocedural laboratory examination (principal); Z20.822 Contact with and (suspected) exposure to COVID-19
CPT/HCPCS: C9803; U0003

== ENCOUNTER 2022-03-16 13:54 | Day surgery (SDC) | payer MEDICARE, OTHER, SELFPAY ==
[2022-03-16 14:17] VITALS: BP 149/77; PULSE 70; RESP 16; TEMP 36.4; O2SAT 99; BMI 23.0
[2022-03-16] MEDS: LACTATED RINGERS 1,000 ML 100 ML IV (14:28)
--- NOTE | 2022-03-16 15:31 | PM.HP.1 ---
History of Present Illness History of Present Illness Chief complaint: DX COLONOSCOPY Narrative: Mr. Duenas presents today having had a colonoscopy in 2017 with 2 adenomatous polyps and a 5 year follow-up recommendation. He is presenting for screening colonoscopy he has no family history of colon cancer. He has no bleeding history of hemorrhoids or diverticular problems. He has not occasionally is constipated but no change in his bowel habits recently that is alarming. He has had a robotic prostatectomy and gallbladder surgery. Patient History Medical History (Updated 03/16/22 @ 15:33 by Shirley Rubio MD) Back pain Chicken pox Foraminal stenosis of lumbar region Fractures (~1965) Glaucoma Hearing loss Herniated nucleus pulposus, L3-4 left History of elevated PSA (~2014) Lumbar spine pain Mumps Personal history of prostate cancer (~2014) Tinnitus Surgical History Anesthesia H/O radical prostatectomy (~2014) History of cholecystectomy (~2014) History of surgery on arm (~1964) Family & Social History Family History Mother Mental health problem Social History: household members spouse Tobacco & Substance use: Smoking Status Never smoker alcohol intake current alcohol intake frequency a few times a week Substance Use Type does not use Meds Home Medications and Allergies Home Medications Medication Instructions Recorded Confirmed Type latanoprost 0.005 % eye drops drp EYE-BOTH DAILY 08/03/20 05/05/21 History cholecalciferol (vitamin D3) 50 50 mcg PO DAILY 10/24/20 03/16/22 History mcg (2,000 unit) capsule Allergies Allergy/AdvReac Type Severity Reaction Status Date / Time No Known Drug Allergies Allergy Verified 03/16/22 14:10 Exam Vital Signs (past 8 hours): - 03/16/22 14:17 Temperature 97.6 F Pulse Rate 70 Respiratory Rate 16 Blood Pressure 149/77 H Pulse Oximetry 99 Const General: cooperative, healthy appearing and comfortable [facility] Ears: other (Cochlear implant left side and hearing aid right side) Eyes General: appearance normal, both eyes and all related structures Resp Effort & Inspection: normal respiratory effort and able to speak in complete sentences Cardio Pulses: radial pulses present GI Palpation: soft and No tender Assessment & Plan Assessment and plan (1) Screen for colon cancer: Status: Acute Assessment & Plan narrative: I discussed the risks benefits and alternatives of a screening colonoscopy with Mr. Duenas including but not limited to perforation of the colon requiring surgery to repair. He understands the risks and the benefits and would like to proceed. Time Spent With Patient Critical Care time: I spent a total of [] minutes of critical care time on this patient's care today; this time is exclusive of procedural time.
[2022-03-16 16:43] VITALS: BP 114/58; PULSE 57; RESP 16; TEMP 36.6; O2SAT 100
[2022-03-16 16:48] VITALS: BP 117/57; PULSE 53; RESP 16; O2SAT 96
[2022-03-16 16:53] VITALS: BP 123/59; PULSE 57; RESP 14; O2SAT 100
[2022-03-16 17:18] VITALS: BP 128/65; PULSE 57; RESP 16; TEMP 36.6; O2SAT 99
--- NOTE | 2022-03-16 17:26 | PM.OP.COLON ---
Procedure & Clinicians Study performed: Colonoscopy Same procedure as scheduled: Yes Indications: Screening Surgeon: Shirley Rubio Procedure Notes Procedure in detail: Patient was taken to the endoscopy suite and placed in a left lateral decubitus position a time-out was performed. And with the help of an anesthesiolgist, conscious sedation was performed. Digital rectal exam was performed and was normal. The colonoscope was introduced into the anus and advanced. The hepatic flexure was difficult to maneuver and required placing the patient on his back and abdominal pressure to reach the cecum. A photograph was obtained of the cecum with the tenia confluence. After much suction and irrigation the appendiceal orifice was seen and a 2nd photograph was taken. There was a lot of dark green very adherent material within the lumen of the cecum and the right side of the colon. This, though I spent in excess of 15 minutes, suctioning and irrigating, attempting to see the cecum as well as I could, did not allow me to feel confident in this being a adequate screening examination. The green material was simply very very adherent to the wall and the use of copious amounts of water still was not lifting it up from the mucosa. Throughout the transverse descending and sigmoid colon as well as the rectum I did not appreciate any further polyps. There were some scattered diverticula. Specimen(s): none sent Complications: other (Poor prep inadequate exam of the right side of colon the colon and cecum.) Post-procedure Recommendations: Colonoscopy in 1 year Plan for aftercare: Due to the poor prep the recommendation would be to have a 2nd colonoscopy as soon as possible. I discussed this with his on the phone following the procedure and I do think that I was able to see the cecum well enough that at least I can say there isn't a large colon cancer there. I think though less safe obviously then immediately repeating the exam waiting another year to undergo this probably is relatively safe.
== END 2022-03-16 17:30 | disposition home or self-care (01) ==
PROVIDERS: PCP Family Medicine; Referring Provider Surgery; Visit Provider Surgery
PROC: 0DJD8ZZ Inspection of Lower Intestinal Tract, Via Natural or Artificial Opening Endoscopic (ICD-10-PCS; CPT 45378; principal; 2022-03-16 15:15)
DX: Z12.11 Encounter for screening for malignant neoplasm of colon (principal); Z86.010 Personal history of colon polyps; K57.30 Diverticulosis of large intestine without perforation or abscess without bleeding
CPT/HCPCS: G0105; G0121; J2704

== ENCOUNTER → 2022-07-18 11:53 | Outpatient (CLI) | payer MEDICARE, OTHER, SELFPAY ==
[2022-07-18 13:05] LABS: Add Manual Diff / Slide Review NO; Basophils Absolute Auto 100 /uL (0-100); Basophils Percent Auto 1.1 % (0-2); Eosinophils Absolute Auto 100 /uL (0-450); Eosinophils Percent Auto 2.1 % (2-4); Hemoglobin 13.5 g/dL (13.5-17.5); Lymphocytes Absolute Auto 1600 /uL (1100-4500); Lymphocytes Percent Auto 32.2 % (25-40); Mean Corpuscular HGB Conc 32.9 % (30-36); Monocytes Absolute Auto 500 /uL (0-900); Monocytes Percent Auto 9.7 % (3-14); Neutrophils Absolute Auto 2800 /uL (1500-7000); Neutrophils Percent Auto 54.9 % (50-75); Platelet Count 258 X10^3/uL (150-400); Red Blood Cell Count 4.66 X10^6/uL (4.5-5.9); Red Cell Distribution Width 13.7 % (11.6-14.8); White Blood Cell Count 5.1 X10^3/uL (4.5-11.0)
[2022-07-18 13:23] LABS: Alanine Aminotransferase 40 IU/L (<50); Albumin 4.2 g/dL (3.5-5.0); Albumin Globulin Ratio 1.4 (1.0-2.8); Alkaline Phosphatase 58 U/L (38-126); Aspartate Aminotransferase 33 IU/L (17-59); BUN Creatinine Ratio 24.7 (6-22); Bilirubin Total 0.7 mg/dL (0.2-1.3); Blood Urea Nitrogen 18 mg/dL (9-20); Calcium 8.8 mg/dL (8.4-10.2); Carbon Dioxide 31 mmol/L (22-32); Chloride 103 mmol/L (98-107); Cholesterol 150 mg/dL (140-199); Estimated Glomerular Filt Rate > 60 mL/min (>60); Glucose 89 mg/dL (80-110); HDL Cholesterol 57 mg/dL (40-60); HEMOLYSIS < 15 (0-50); LDL Cholesterol Calculated 84 mg/dL (<100); Sodium 139 mmol/L (137-145); Total Protein 7.2 g/dL (6.3-8.2); Triglycerides 47 mg/dL (35-150)
[2022-07-18 13:53] LABS: Thyroid Stimulating Hormone 3.27 uIU/mL (0.47-4.68)
[2022-07-19 07:47] LABS: PSA Ultrasensitive <0.006 ng/mL (0.000-4.000)
== END ==
PROVIDERS: PCP Family Medicine; Referring Provider Family Medicine; Visit Provider Family Medicine
DX: I49.9 Cardiac arrhythmia, unspecified (principal); Z13.6 Encounter for screening for cardiovascular disorders; Z85.46 Personal history of malignant neoplasm of prostate; Z86.79 Personal history of other diseases of the circulatory system
CPT/HCPCS: 36415; 80053; 80061; 84153; 84443; 85025

== ENCOUNTER → 2022-07-26 09:38 | Outpatient (CLI) | payer MEDICARE, OTHER, SELFPAY | PROVIDERS: PCP Family Medicine; Referring Provider Family Medicine; Visit Provider Family Medicine | DX: I49.9 Cardiac arrhythmia, unspecified (principal) | CPT/HCPCS: 93246 ==

== ENCOUNTER 2023-07-04 10:40 | Emergency (ER) | payer MEDICARE, OTHER, SELFPAY ==
[2023-07-04] VITALS (26 sets, daily range): BP systolic 114–148; BP diastolic 60–72; PULSE 46–63; RESP 13–25; TEMP 37.1; O2SAT 97–100; BMI 25.1
--- NOTE | 2023-07-04 11:20 | DI.RAD.S_ITS ---
PROCEDURE: XR CHEST 1V INDICATIONS: chest pain TECHNIQUE: One view of the chest was acquired. COMPARISON: [facility], CR, XR CHEST 1V, 12/14/2020, 22:01. FINDINGS: Surgical changes and devices: None. Lungs and pleura: Lungs are clear. No pleural effusions or pneumothorax. Mediastinum: Mediastinal contours appear normal. Heart size is normal. Bones and chest wall: No suspicious bony lesions. Overlying soft tissues appear unremarkable. IMPRESSION: No acute cardiopulmonary abnormality is seen. Dictated by: Aleksey Castro M.D. on 07/04/2023 at 12:11 Approved by: Aleksey Castro M.D. on 07/04/2023 at 12:11
[2023-07-04 11:26] LABS: Add Manual Diff / Slide Review NO; Basophils Absolute Auto 100 /uL (0-100); Eosinophils Absolute Auto 200 /uL (0-450); Eosinophils Percent Auto 3.1 % (2-4); Hematocrit 37.4 % (41-53); Hemoglobin 12.7 g/dL (13.5-17.5); Lymphocytes Absolute Auto 1200 /uL (1100-4500); Lymphocytes Percent Auto 21.3 % (25-40); Mean Corpuscular Hemoglobin 29.8 PG (26-34); Mean Corpuscular Volume 87.8 fL (80-100); Monocytes Absolute Auto 600 /uL (0-900); Monocytes Percent Auto 10.5 % (3-14); Neutrophils Absolute Auto 3500 /uL (1500-7000); Neutrophils Percent Auto 64.1 % (50-75); Platelet Count 266 X10^3/uL (150-400); Red Blood Cell Count 4.26 X10^6/uL (4.5-5.9); Red Cell Distribution Width 13.3 % (11.6-14.8); White Blood Cell Count 5.5 X10^3/uL (4.5-11.0)
[2023-07-04 11:33] LABS: Alanine Aminotransferase 37 IU/L (<50); Albumin 3.8 g/dL (3.5-5.0); Albumin Globulin Ratio 1.4 (1.0-2.8); Alkaline Phosphatase 57 U/L (38-126); Aspartate Aminotransferase 33 IU/L (17-59); BUN Creatinine Ratio 30.8 (6-22); Bilirubin Total 0.5 mg/dL (0.2-1.3); Blood Urea Nitrogen 20 mg/dL (9-20); Carbon Dioxide 27 mmol/L (22-32); Chloride 110 mmol/L (98-107); Creatine Kinase 66 U/L (55-170); Estimated Glomerular Filt Rate > 60 mL/min (>60); Globulin 2.8 g/dL (1.7-4.1); Glucose 96 mg/dL (80-110); HEMOLYSIS < 15 (0-50); Potassium 4.2 mmol/L (3.4-5.1); Sodium 140 mmol/L (137-145); Total Protein 6.6 g/dL (6.3-8.2)
[2023-07-04 11:45] LABS: Troponin I < 0.012 ng/mL (0.01-0.034)
--- NOTE | 2023-07-04 12:34 | ED_ITS ---
HPI - Chest Pain General Chief Complaint: Chest Pain Stated Complaint: chest pain Time Seen by Provider: 07/04/23 11:18 Source: patient and family Mode of arrival: Ambulatory Limitations: no limitations History of Present Illness HPI narrative: Patient here with . [place]. Complains of sudden onset left-sided chest discomfort radiating to the jaw neck upper left back and left arm. This started at 3:30 a.m. this morning. It was off and on throughout the morning. It is now resolved. No nausea sweating or shortness of breath. No history of blood clots in legs or lungs. Patient did have Zio patch in arrhythmias/palpitation workup August [address] [facility] last year. No new medications were started. Patient has never had a stress test or echocardiogram. Patient did take aspirin prior to arrival. Patient states this feels different from pericarditis he had last year. He did take colchicine as well. Currently has no chest pain. He denies any recent exertional chest pain or dyspnea. No fatigue or changes in his health. Denies any injury or unusual strain on his chest or muscles. Discomfort is nonreproducible Related Data Home Medications Medication Instructions Recorded Confirmed latanoprost 0.005 % eye drops drp EYE-BOTH DAILY 08/03/20 07/17/23 cholecalciferol (vitamin D3) 50 50 mcg PO DAILY 10/24/20 07/17/23 mcg (2,000 unit) capsule Allergies Allergy/AdvReac Type Severity Reaction Status Date / Time No Known Drug Allergies Allergy Verified 07/17/23 11:16 Review of Systems Review of Systems Narrative: GENERAL: negative chills, fatigue, malaise, fever, sweats. HEENT: negative sinus pain, ear pain, sore throat RESPIRATORY: negative dyspnea, cough CARDIOVASCULAR: Positive chest pain, negative palpitations GASTROINTESTINAL: negative nausea, vomiting, abdominal pain : negative dysuria, frequency, hematuria MUSCULOSKELETAL: negative muscle or bony pain SKIN: negative rash, skin lesions NEUROLOGIC: negative weakness, numbness ROS Unobtainable: All systems reviewed & are unremarkable except as noted in HPI and below Patient History Medical History Cochlear implant in place Herniated nucleus pulposus, L3-4 left Lumbar spine pain Fractures (~1965) Mumps Chicken pox Tinnitus Hearing loss Glaucoma History of elevated PSA (~2014) Foraminal stenosis of lumbar region Personal history of prostate cancer (~2014) Back pain Surgical History Anesthesia History of surgery on arm (~1964) History of cholecystectomy (~2014) H/O radical prostatectomy (~2014) Family History Mother Mental health problem Social History household members: spouse Smoking Status: Never smoker alcohol intake: current Smoking Status: Never smoker alcohol intake frequency: a few times a week Substance Use Type: does not use Exam Narrative Exam Narrative: GENERAL: in no distress, not toxic not dyspneic HEAD: Normocephalic. EYES: Pupils equal round ENT: Mucous membranes moist. NECK: Trachea midline. CARDIOVASCULAR: Regular rate and rhythm RESPIRATORY: Clear to auscultation. Breath sounds equal bilaterally. No wheezes, rales, or rhonchi. GASTROINTESTINAL: Abdomen soft, non-tender EXTREMITIES: No gross deformities. BACK: No flank tenderness. NEURO: AOx4. SKIN: Warm and dry PSYCH: Not anxious, is cooperative Initial Vital Signs Initial Vital Signs: Vital Signs Pulse Rate 63 07/04/23 10:52 Pulse Oximetry 99 07/04/23 10:52 Scores HEART Score Heart Score history: Moderately Suspicious Heart Score EKG: Non-Specific repolarization disturbance Heart Score Age: > or = 65 years old Heart Score risk factors: No known risk factors Heart Score troponin: < or = to normal limit Heart Score Total: 4 Course Orders Ordered: Discontinued Medications Sodium Chloride (Normal Saline 0.9%) 500 mls @ 1,000 mls/hr IV BOLUS ONE Stop: 07/04/23 13:03 Last Infusion: 07/04/23 14:06 Dose: Infused Documented By: Admin: 07/04/23 13:14 Dose: 1,000 mls/hr Documented By: ARI Vital Signs Vital signs: Vital Signs - 8 hr 07/04/23 10:52 07/04/23 10:53 07/04/23 10:53 Temperature Pulse Rate 63 61 Respiratory Rate Blood Pressure 114/61 Pulse Oximetry 99 99 Oxygen Delivery Method 07/04/23 11:00 07/04/23 11:03 07/04/23 11:30 Temperature 98.7 F Pulse Rate 56 L 63 57 L Respiratory Rate 22 18 23 Blood Pressure 114/60 Pulse Oximetry 99 98 Oxygen Delivery Method Room Air 07/04/23 11:45 07/04/23 11:45 07/04/23 12:00 Temperature Pulse Rate 51 L 52 L Respiratory Rate 25 H 20 Blood Pressure 116/61 Pulse Oximetry 98 97 Oxygen Delivery Method 07/04/23 12:00 07/04/23 12:15 07/04/23 12:15 Temperature Pulse Rate 50 L Respiratory Rate 18 Blood Pressure 118/64 116/68 Pulse Oximetry 98 Oxygen Delivery Method 07/04/23 12:30 07/04/23 12:30 07/04/23 12:56 Temperature Pulse Rate 54 L Respiratory Rate 20 Blood Pressure 127/66 135/63 Pulse Oximetry 98 Oxygen Delivery Method 07/04/23 12:56 07/04/23 13:00 07/04/23 13:00 Temperature Pulse Rate 54 L 51 L Respiratory Rate 19 13 Blood Pressure 134/62 Pulse Oximetry 99 100 Oxygen Delivery Method 07/04/23 13:15 07/04/23 13:15 07/04/23 13:30 Temperature Pulse Rate 51 L Respiratory Rate 21 Blood Pressure 128/64 130/67 Pulse Oximetry 100 Oxygen Delivery Method 07/04/23 13:30 07/04/23 13:45 07/04/23 13:45 Temperature Pulse Rate 49 L 46 L Respiratory Rate 15 15 Blood Pressure 130/63 Pulse Oximetry 100 99 Oxygen Delivery Method 07/04/23 14:00 07/04/23 14:00 07/04/23 14:15 Temperature Pulse Rate 47 L Respiratory Rate 15 Blood Pressure 130/63 123/68 Pulse Oximetry 99 Oxygen Delivery Method 07/04/23 14:15 07/04/23 14:30 07/04/23 14:30 Temperature Pulse Rate 49 L 48 L Respiratory Rate 16 15 Blood Pressure 122/71 Pulse Oximetry 99 99 Oxygen Delivery Method 07/04/23 14:58 07/04/23 14:58 07/04/23 15:00 Temperature Pulse Rate 50 L 46 L Respiratory Rate 22 17 Blood Pressure 135/64 Pulse Oximetry 98 99 Oxygen Delivery Method 07/04/23 15:01 07/04/23 15:01 07/04/23 15:15 Temperature Pulse Rate 48 L Respiratory Rate 19 Blood Pressure 130/72 120/65 Pulse Oximetry 100 Oxygen Delivery Method 07/04/23 15:15 07/04/23 15:30 07/04/23 15:30 Temperature Pulse Rate 48 L 48 L Respiratory Rate 16 17 Blood Pressure 132/70 Pulse Oximetry 99 99 Oxygen Delivery Method 07/04/23 15:45 07/04/23 15:45 07/04/23 16:00 Temperature Pulse Rate 50 L Respiratory Rate 20 Blood Pressure 130/72 129/70 Pulse Oximetry 99 Oxygen Delivery Method 07/04/23 16:00 07/04/23 16:15 07/04/23 16:15 Temperature Pulse Rate 49 L 48 L Respiratory Rate 21 17 Blood Pressure 130/67 Pulse Oximetry 99 98 Oxygen Delivery Method MDM - Chest Pain Lab Data 07/04/23 11:08 07/04/23 11:08 Labs: Lab Results 07/04/23 07/04/23 Range/Units 11:08 12:57 WBC 5.5 (4.5-11.0) X10^3/uL RBC 4.26 L (4.5-5.9) X10^6/uL Hgb 12.7 L (13.5-17.5) g/dL Hct 37.4 L (41-53) % MCV 87.8 (80-100) fL MCH 29.8 (26-34) PG MCHC 34.0 (30-36) % RDW 13.3 (11.6-14.8) % Plt Count 266 (150-400) X10^3/uL Neut % (Auto) 64.1 (50-75) % Lymph % (Auto) 21.3 L (25-40) % [place] % (Auto) 10.5 (3-14) % Eos % (Auto) 3.1 (2-4) % Baso % (Auto) 1.0 (0-2) % Neut # (Auto) 3500 (5486-7584) /uL Lymph # (Auto) 1200 (8540-6666) /uL [place] # (Auto) 600 (0-900) /uL Eos # (Auto) 200 (0-450) /uL Baso # (Auto) 100 (0-100) /uL Sodium 140 (137-145) mmol/L Potassium 4.2 (3.4-5.1) mmol/L Chloride 110 H (98-107) mmol/L Carbon Dioxide 27 (22-32) mmol/L BUN 20 (9-20) mg/dL Creatinine 0.65 L (0.66-1.25) mg/dL Estimated GFR > 60 (>60) mL/min BUN/Creatinine Ratio 30.8 H (6-22) Glucose 96 (80-110) mg/dL Calcium 9.0 (8.4-10.2) mg/dL Total Bilirubin 0.5 (0.2-1.3) mg/dL AST 33 (17-59) IU/L ALT 37 (<50) IU/L Alkaline Phosphatase 57 (38-126) U/L Total Creatine Kinase 66 60 (55-170) U/L Troponin I < 0.012 < 0.012 (0.01-0.034) ng/mL Total Protein 6.6 (6.3-8.2) g/dL Albumin 3.8 (3.5-5.0) g/dL Globulin 2.8 (1.7-4.1) g/dL Albumin/Globulin Ratio 1.4 (1.0-2.8) Imaging Data Chest x-ray: Radiologist's Impression: [address] [address] XRay Report Signed Patient: Nate Duenas MR#: [id number] : 1950 Acct:[id number] Age/Sex: 73 / M Date of Service: 07/04/23 Loc: ED Accession Number: [id number] Procedure: XR chest 1V Ordering Provider: Amalia Greenberg MD PROCEDURE: XR CHEST 1V INDICATIONS: chest pain TECHNIQUE: One view of the chest was acquired. COMPARISON: [facility], , XR CHEST 1V, 12/14/2020, 22:01. FINDINGS: Surgical changes and devices: None. Lungs and pleura: Lungs are clear. No pleural effusions or pneumothorax. Mediastinum: Mediastinal contours appear normal. Heart size is normal. Bones and chest wall: No suspicious bony lesions. Overlying soft tissues appear unremarkable. IMPRESSION: No acute cardiopulmonary abnormality is seen. Dictated by: Aleksey Castro M.D. on 07/04/2023 at 12:11 Approved by: Aleksey Castro M.D. on 07/04/2023 at 12:11 CT scan - chest: Radiologist's Impression: [address] [address] [address] Scan Report Signed Patient: Nate Duenas MR#: [id number] : 1950 Acct:[id number] Age/Sex: 73 / M Date of Service: 07/04/23 Loc: ED Accession Number: [id number] Procedure: CT angio chest PE protocol Ordering Provider: Amalia Greenberg MD PROCEDURE: CT ANGIO CHEST PE PROTOCOL INDICATIONS: Left-sided chest pain TECHNIQUE: After the administration of intravenous contrast, 2 mm thick sections acquired from the pulmonary apices to the posterior costophrenic angles. 3-dimensional maximum intensity projection (MIP) coronal and sagittal reformats were then acquired through the thorax. For radiation dose reduction, the following was used: automated exposure control, adjustment of mA and/or kV according to patient size. COMPARISON: [facility], CR, XR CHEST 1V, 07/04/2023, 11:45. FINDINGS: Image quality: Diagnostic. Pulmonary arteries: Pulmonary arteries are normal in size, and demonstrate no intraluminal filling defects to suggest central pulmonary embolism. Lower Neck: No enlarged lymph nodes. Thyroid: No thyroid nodules which require sonographic follow up, per consensus guidelines. Axillae: No enlarged lymph nodes. Chest Wall: Unremarkable. Bones: Unremarkable. Lungs and Pleura: No pneumothorax or pleural effusions. No consolidation or suspicious nodules. Septated right lower lobe pulmonary cysts. Heart: Heart size is normal. No pericardial effusion. Thoracic Vessels: No aortic aneurysm. Mediastinum and Jada: No enlarged lymph nodes. Esophagus: No wall thickening. No hiatal hernia. Upper Abdomen: No acute disease process in the visualized abdomen. Cyst in the right hepatic lobe. Gallbladder surgically absent. IMPRESSION: No pulmonary embolus or aortic dissection. No lung consolidation or pleural effusion. Dictated by: Doris Cox MD, PhD on 07/04/2023 at 13:03 Approved by: Doris Cox MD, PhD on 07/04/2023 at 13:08 Echocardiogram: Radiologist's Impression: [address] [address] Echocardiography Report Signed Patient: Nate Duenas MR#: [id number] : 1950 Acct:[id number] Age/Sex: 73 / M Date of Service: 07/04/23 Loc: ED Accession Number: [id number] Procedure: EC echo doppler complete Ordering Provider: Amalia Greenberg MD [facility]---------+ [facility] +---------+ : : [address] [place] : : : : [address] : : : : Phone: [phone]+ Echocardiogram Report + + :Name: NATE DUENAS Study Date: 07/04/2023 Height: 71 in : :[facility] ReadingLocation: Weight: 180 lb : : Gender: Male BSA: 2.0 m2 : :: 1950 Age: 73 yrs BP: 120/65 mmHg: :Reason For Study: CHEST PAIN : :Ordering Physician: YARI, : :AMALIA Performed By: Anabell Rosario : :Referring: AMALIA GREENBERG : + + Interpretation Summary The patient was in sinus bradycardia with heart rates between 46-56 bpm during the exam. The ejection fraction is estimated to be 55-60%. Diastolic parameters suggest probable normal left ventricular diastolic function and normal filling pressures. The right ventricle is normal in size and function. There is mild mitral regurgitation. There is trace aortic regurgitation. Pulmonary artery pressures cannot be estimated because of the lack of a measurable TR jet velocity but the IVC suggests a CVP of around 8 mmHg. Procedure: A two-dimensional transthoracic echocardiogram with color flow and Doppler was performed. The study quality was technically adequate. There is no prior echocardiogram noted for this patient. The patient was in sinus bradycardia with heart rates between 46-56 bpm during the exam. Left Ventricle: The left ventricle is normal in size and wall thickness. The ejection fraction is estimated to be 55-60%. Diastolic parameters suggest probable normal left ventricular diastolic function and normal filling pressures. Right Ventricle: The right ventricle is normal in size and function. Atria: The left atrial size is normal. Right atrial size is normal. There is no Doppler evidence for an interatrial shunt. Mitral Valve: The mitral valve is normal in structure and function. There is mild mitral regurgitation. Aortic Valve: The aortic valve is trileaflet. The aortic valve opens well. There is no aortic valve stenosis. There is trace aortic regurgitation. Tricuspid Valve: The tricuspid valve is normal in structure and function. There is trace tricuspid regurgitation. Pulmonary artery pressures cannot be estimated because of the lack of a measurable TR jet velocity but the IVC suggests a CVP of around 8 mmHg. Pulmonic Valve: The pulmonic valve is not well seen, but is grossly normal. There is trace pulmonic regurgitation. Great Vessels: The aortic root is normal size. The dimensions of the ascending aorta are normal. The IVC is dilated (diameter is greater than 2.1 cm) yet it collapses greater than 50% with a sniff. This suggests a right atrial pressure of 8 mm Hg. Pericardium/ Pleura There is no pericardial effusion. There is no pleural effusion. MMode/2D Measurements & Calculations LVIDd: 5.2 cm LVOT diam: 2.2 cm LVIDs: 3.6 cm Ao root diam: 3.5 cm FS: 29.6 % asc Aorta Diam: 3.7 cm EPSS: 0.59 cm IVSd: 0.71 cm LVPWd: 0.75 cm LV adkins. diameter/BSA (cm/m^2): 2.6 LV sys. diameter/BSA (cm/m^2): 1.8 LA A2 area: 17.2 cm2 RA long axis: 5.3 cm LA A4 area: 17.4 cm2 RA area: 16.3 cm2 LA length (vol): 4.9 cm RA vol: 42.4 ml LA vol: 51.3 ml RA : 21.0 ml/m2 LA vol index: 25.4 ml/m2 IVC diam: 2.4 cm RVD1 (basal): 4.1 cm RVD2 (mid): 3.2 cm TAPSE: 2.2 cm Doppler Measurements & Calculations Ao V2 max: 126.4 cm/sec LVOT Max Josse: 101.7 cm/sec Ao V2 mean: 84.3 cm/sec LV V1 max P.1 mmHg Ao max P.4 mmHg LV V1 VTI: 24.9 cm Ao mean P.2 mmHg BARTOLOME(I,D): 3.2 cm2 Ao V2 VTI: 30.8 cm BARTOLOME(V,D): 3.2 cm2 sev ratio: 0.81 BARTOLOME indexed to BSA (cm^2/m^2): 1.6 MV E max josse: 71.2 cm/sec TR max josse: 205.3 cm/sec MV A max josse: 46.1 cm/sec TR max P.9 mmHg MV E/A: 1.5 PA V2 max: 64.6 cm/sec Med Peak E' Josse: 10.4 cm/sec PA V2 mean: 46.1 cm/sec E/E' med: 6.8 PA mean P.93 mmHg Lat Peak E' Josse: 11.3 cm/sec PA pr(Accel): 31.0 mmHg E/E' lat: 6.3 E/e' average: 6.6 MV dec time: 0.28 sec SV(LVOT): 98.5 ml Reading Physician:04:[address] [facility] Narrative Medical decision making narrative: Patient here with . Brought self [place]. Complains of sudden onset left-sided chest discomfort radiating to the jaw neck upper left back and left arm. This started at 3:30 a.m. this morning. It was off and on throughout the morning. It is now resolved. No nausea sweating or shortness of breath. No history of blood clots in legs or lungs. Patient did have Zio patch in arrhythmias/palpitation workup [address] [facility] last year. No new medications were started. Patient has never had a stress test or echocardiogram. Patient did take aspirin prior to arrival. Patient states this feels different from pericarditis he had last year After history and exam CBC CMP EKG troponin x2 chest x-ray normal saline MDM CC: Chest pain Complicating co-morbidities: None Data collected from: Patient and Medical records reviewed: No recent visit for this complaint Differential considered: Includes but not limited to STEMI non-STEMI unstable angina pericarditis pulmonary embolism aortic dissection Exam documented above, pertinent findings include: Nontender chest Lab Test results independently reviewed as above. Pertinent findings: Troponin less than 0.012 Independently reviewed EKG sinus bradycardia ST changes likely early repolarization. Repeat EKG 1:17 p.m.. Sinus bradycardia rate 47 early repolarization otherwise normal EKG Imaging studies independently reviewed: Chest x-ray no acute finding CT chest no acute finding no PE no dissection Echocardiogram ejection fraction 55-60% Consultations: 12:50 p.m.. Spoke with hospitalist, Dr. Steve, who would like case to be reviewed with engineering manager electronics on-call for disposition, patient has low heart score and would benefit outpatient studies 1:[address] Steiner, on-call Cardiology with [facility], patient has low heart score and presentation does not appear to be coronary in origin. Does not appear to be angina or STEMI or non-STEMI. Repeat EKG and troponin and patient is appropriate to follow up with primary care. EKG from May 08, 2021 similar EKG as today. He feels this is atypical chest pain Treatments: Normal saline Re-evaluations: 5:30 p.m.. Patient remains chest pain-free. Echocardiogram has resulted and is reassuring. Reviewed with patient and my discussion with Cardiology and hospitalist. At this time does not sound like acute coronary syndrome or coronary event. 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 They do understand. They will need to follow up with primary care and schedule outpatient stress test. I have not started for also baby aspirin daily. Not toxic at discharge. They desire discharge home Discussion: Appropriate for discharge home. I did review with hospitalist and engineering manager electronics. Patient and family agree and desire discharge home. He is chest pain-free at time of discharge. Patient has low heart score. There are no EKG changes. Two troponins are negative. Echocardiogram is reassuring. CT imaging of the chest is unremarkable. Return precautions reviewed. They desire discharge home Diagnosis: Atypical chest pain Discharge Plan Departure Patient Disposition: Home Clinical Impression: Atypical chest pain Instructions: DI for Acute Coronary Syndrome, DI for Atypical Chest Pain, DI for Chest Pain Activity Restrictions/Additional Instructions: Please see family doctor within a week for re-evaluation of the schedule outpatient stress test for your heart. Your results have been reviewed with Cardiology today and hospitalist and at this time they are reassuring. Return if worse if any questions or concerns. Please do take baby aspirin daily. Prescriptions: No Action latanoprost 0.005 % drops EYE-BOTH DAILY cholecalciferol (vitamin D3) 50 mcg (2,000 unit) capsule 50 mcg PO DAILY Referrals: Pam Newsome MD [Primary Care Provider] - Stand Alone Forms: Patient Portal/API
--- NOTE | 2023-07-04 12:44 | DI.ECHO.S_ITS ---
[facility]---------+ [facility] +---------+ : : [address] : [address] : : [place] : : : : [id number] : : : : Phone: [phone] : : [phone]+ Echocardiogram Report + + :Name: NATE BOWSER Study Date: 07/04/2023 Height: 71 in : :[facility] ReadingLocation: Weight: 180 lb : : Gender: Male BSA: 2.0 m2 : :: 1950 Age: 73 yrs BP: 120/65 mmHg: :Reason For Study: CHEST PAIN : :Ordering Physician: YARI, : :AMALIA Performed By: Anabell Rosario : :Referring: AMALIA GREENBERG : + + Interpretation Summary The patient was in sinus bradycardia with heart rates between 46-56 bpm during the exam. The ejection fraction is estimated to be 55-60%. Diastolic parameters suggest probable normal left ventricular diastolic function and normal filling pressures. The right ventricle is normal in size and function. There is mild mitral regurgitation. There is trace aortic regurgitation. Pulmonary artery pressures cannot be estimated because of the lack of a measurable TR jet velocity but the IVC suggests a CVP of around 8 mmHg. Procedure: A two-dimensional transthoracic echocardiogram with color flow and Doppler was performed. The study quality was technically adequate. There is no prior echocardiogram noted for this patient. The patient was in sinus bradycardia with heart rates between 46-56 bpm during the exam. Left Ventricle: The left ventricle is normal in size and wall thickness. The ejection fraction is estimated to be 55-60%. Diastolic parameters suggest probable normal left ventricular diastolic function and normal filling pressures. Right Ventricle: The right ventricle is normal in size and function. Atria: The left atrial size is normal. Right atrial size is normal. There is no Doppler evidence for an interatrial shunt. Mitral Valve: The mitral valve is normal in structure and function. There is mild mitral regurgitation. Aortic Valve: The aortic valve is trileaflet. The aortic valve opens well. There is no aortic valve stenosis. There is trace aortic regurgitation. Tricuspid Valve: The tricuspid valve is normal in structure and function. There is trace tricuspid regurgitation. Pulmonary artery pressures cannot be estimated because of the lack of a measurable TR jet velocity but the IVC suggests a CVP of around 8 mmHg. Pulmonic Valve: The pulmonic valve is not well seen, but is grossly normal. There is trace pulmonic regurgitation. Great Vessels: The aortic root is normal size. The dimensions of the ascending aorta are normal. The IVC is dilated (diameter is greater than 2.1 cm) yet it collapses greater than 50% with a sniff. This suggests a right atrial pressure of 8 mm Hg. Pericardium/ Pleura There is no pericardial effusion. There is no pleural effusion. MMode/2D Measurements & Calculations LVIDd: 5.2 cm LVOT diam: 2.2 cm LVIDs: 3.6 cm Ao root diam: 3.5 cm FS: 29.6 % asc Aorta Diam: 3.7 cm EPSS: 0.59 cm IVSd: 0.71 cm LVPWd: 0.75 cm LV adkins. diameter/BSA (cm/m^2): 2.6 LV sys. diameter/BSA (cm/m^2): 1.8 LA A2 area: 17.2 cm2 RA long axis: 5.3 cm LA A4 area: 17.4 cm2 RA area: 16.3 cm2 LA length (vol): 4.9 cm RA vol: 42.4 ml LA vol: 51.3 ml RA : 21.0 ml/m2 LA vol index: 25.4 ml/m2 IVC diam: 2.4 cm RVD1 (basal): 4.1 cm RVD2 (mid): 3.2 cm TAPSE: 2.2 cm Doppler Measurements & Calculations Ao V2 max: 126.4 cm/sec LVOT Max Josse: 101.7 cm/sec Ao V2 mean: 84.3 cm/sec LV V1 max P.1 mmHg Ao max P.4 mmHg LV V1 VTI: 24.9 cm Ao mean P.2 mmHg ABRTOLOME(I,D): 3.2 cm2 Ao V2 VTI: 30.8 cm BARTOLOME(V,D): 3.2 cm2 sev ratio: 0.81 BARTOLOME indexed to BSA (cm^2/m^2): 1.6 MV E max josse: 71.2 cm/sec TR max josse: 205.3 cm/sec MV A max josse: 46.1 cm/sec TR max P.9 mmHg MV E/A: 1.5 PA V2 max: 64.6 cm/sec Med Peak E' Josse: 10.4 cm/sec PA V2 mean: 46.1 cm/sec E/E' med: 6.8 PA mean P.93 mmHg Lat Peak E' Josse: 11.3 cm/sec PA pr(Accel): 31.0 mmHg E/E' lat: 6.3 E/e' average: 6.6 MV dec time: 0.28 sec SV(LVOT): 98.5 ml Reading Physician:04:57 PM
[2023-07-04] MEDS: SODIUM CHLORIDE 0.9% 500 ML 1000 ML IV (13:14)
[2023-07-04 13:18] LABS: Creatine Kinase 60 U/L (55-170)
[2023-07-04 13:30] LABS: Troponin I < 0.012 ng/mL (0.01-0.034)
== END 2023-07-04 17:40 | disposition home or self-care (01) ==
PROVIDERS: Emergency Provider Emergency Medicine; PCP Family Medicine
DX: R07.89 Other chest pain (principal)
CPT/HCPCS: 36415; 71045; 71275; 80053; 82550; 84484; 85025; 93005; 93010; 93306; 96360; 99284

== ENCOUNTER → 2023-07-19 13:41 | Outpatient (CLI) | payer MEDICARE, OTHER, SELFPAY ==
[2023-07-22 21:15] LABS: Fecal Immunochemical Test Negative (Negative)
== END ==
PROVIDERS: PCP Family Medicine; Referring Provider Physician Assistant; Visit Provider Physician Assistant
DX: D64.9 Anemia, unspecified (principal)
CPT/HCPCS: 82274

== ENCOUNTER → 2023-07-25 08:37 | Outpatient (CLI) | payer MEDICARE, OTHER, SELFPAY ==
[2023-07-25 09:48] LABS: Add Manual Diff / Slide Review NO; Basophils Absolute Auto 100 /uL (0-100); Basophils Percent Auto 1.1 % (0-2); Eosinophils Absolute Auto 200 /uL (0-450); Eosinophils Percent Auto 5.3 % (2-4); Hematocrit 40.2 % (41-53); Hemoglobin 13.5 g/dL (13.5-17.5); Lymphocytes Absolute Auto 1400 /uL (1100-4500); Mean Corpuscular HGB Conc 33.7 % (30-36); Mean Corpuscular Hemoglobin 29.8 PG (26-34); Mean Corpuscular Volume 88.4 fL (80-100); Monocytes Absolute Auto 500 /uL (0-900); Monocytes Percent Auto 10.1 % (3-14); Neutrophils Absolute Auto 2400 /uL (1500-7000); Neutrophils Percent Auto 52.5 % (50-75); Platelet Count 274 X10^3/uL (150-400); Red Blood Cell Count 4.55 X10^6/uL (4.5-5.9); Red Cell Distribution Width 13.9 % (11.6-14.8); White Blood Cell Count 4.5 X10^3/uL (4.5-11.0)
[2023-07-25 10:05] LABS: Erythrocyte Sedimentation Rate 5 MM/HR (0-15)
[2023-07-25 10:18] LABS: HEMOLYSIS < 15 (0-50)
[2023-07-25 10:24] LABS: Alanine Aminotransferase 51 IU/L (<50); Albumin 4.1 g/dL (3.5-5.0); Albumin Globulin Ratio 1.4 (1.0-2.8); Alkaline Phosphatase 61 U/L (38-126); Aspartate Aminotransferase 39 IU/L (17-59); BUN Creatinine Ratio 42.3 (6-22); Bilirubin Total 0.9 mg/dL (0.2-1.3); Blood Urea Nitrogen 30 mg/dL (9-20); Calcium 9.4 mg/dL (8.4-10.2); Carbon Dioxide 32 mmol/L (22-32); Chloride 108 mmol/L (98-107); Cholesterol 140 mg/dL (140-199); Estimated Glomerular Filt Rate > 60 mL/min (>60); Globulin 2.9 g/dL (1.7-4.1); Glucose 99 mg/dL (80-110); HDL Cholesterol 46 mg/dL (40-60); LDL Cholesterol Calculated 82 mg/dL (<100); Potassium 4.5 mmol/L (3.4-5.1); Sodium 141 mmol/L (137-145); Triglycerides 61 mg/dL (35-150)
[2023-07-25 10:47] LABS: TSH w/ Reflex to FT4 3.16 uIU/mL (0.47-4.68)
[2023-07-25 10:58] LABS: High Sensitivity CRP - Cardiac < 0.3 mg/L (1.0-3.0)
[2023-07-25 22:50] LABS: Hep C Virus Ab w/Reflex Quant NEGATIVE s/c (NEGATIVE)
[2023-07-26 08:50] LABS: PSA Ultrasensitive <0.006 ng/mL (0.000-4.000)
== END ==
PROVIDERS: PCP Family Medicine; Referring Provider Physician Assistant; Visit Provider Physician Assistant
DX: Z13.6 Encounter for screening for cardiovascular disorders (principal); Z85.46 Personal history of malignant neoplasm of prostate; D64.9 Anemia, unspecified; I49.9 Cardiac arrhythmia, unspecified; Z11.59 Encounter for screening for other viral diseases; R07.89 Other chest pain; Z86.79 Personal history of other diseases of the circulatory system
CPT/HCPCS: 36415; 80053; 80061; 84153; 84443; 85025; 85651; 86140; 86803

== ENCOUNTER 2023-11-13 12:11 | Emergency (ER) | payer MEDICARE, OTHER, SELFPAY ==
[2023-11-13] VITALS (13 sets, daily range): BP systolic 90–113; BP diastolic 51–61; PULSE 49–71; RESP 14–24; TEMP 36.4; O2SAT 96–100; BMI 23.0
--- NOTE | 2023-11-13 12:23 | DI.RAD.S_ITS ---
PROCEDURE: XR CHEST 1V INDICATIONS: chest pain TECHNIQUE: One view of the chest was acquired. COMPARISON: [facility], CR, XR CHEST 1V, 07/04/2023, 11:45. [facility], CR, XR CHEST 1V, 12/14/2020, 22:01. FINDINGS: Surgical changes and devices: None. Lungs and pleura: Lungs are clear. No pleural effusions or pneumothorax. Mediastinum: Mediastinal contours appear normal. Heart size is normal. Bones and chest wall: No suspicious bony lesions. Overlying soft tissues appear unremarkable. IMPRESSION: No acute cardiopulmonary abnormality is seen. Dictated by: Reji Moore M.D. on 11/13/2023 at 12:00 Approved by: Reji Moore M.D. on 11/13/2023 at 12:01
--- NOTE | 2023-11-13 12:23 | EKG_ITS ---
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
[2023-11-13 12:52] LABS: Add Manual Diff / Slide Review NO; Basophils Absolute Auto 100 /uL (0-100); Eosinophils Absolute Auto 100 /uL (0-450); Eosinophils Percent Auto 1.9 % (2-4); Hematocrit 40.6 % (41-53); Hemoglobin 13.7 g/dL (13.5-17.5); Lymphocytes Absolute Auto 1800 /uL (1100-4500); Lymphocytes Percent Auto 25.9 % (25-40); Mean Corpuscular HGB Conc 33.7 % (30-36); Mean Corpuscular Hemoglobin 29.5 PG (26-34); Mean Corpuscular Volume 87.6 fL (80-100); Monocytes Absolute Auto 600 /uL (0-900); Monocytes Percent Auto 8.3 % (3-14); Neutrophils Absolute Auto 4500 /uL (1500-7000); Neutrophils Percent Auto 62.9 % (50-75); Platelet Count 295 X10^3/uL (150-400); Red Blood Cell Count 4.64 X10^6/uL (4.5-5.9); Red Cell Distribution Width 13.8 % (11.6-14.8); White Blood Cell Count 7.1 X10^3/uL (4.5-11.0)
[2023-11-13 12:54] LABS: INR 1.1 (0.9-1.3); Prothrombin Time 12.4 SECONDS (9.4-12.5)
[2023-11-13 12:57] LABS: PTT Partial Thromboplastin Tim 32 SECONDS (25.1-36.5)
[2023-11-13 12:58] LABS: Alanine Aminotransferase 43 IU/L (<50); Albumin 4.1 g/dL (3.5-5.0); Albumin Globulin Ratio 1.5 (1.0-2.8); Alkaline Phosphatase 66 U/L (38-126); Aspartate Aminotransferase 35 IU/L (17-59); BUN Creatinine Ratio 37.2 (6-22); Bilirubin Total 0.7 mg/dL (0.2-1.3); Blood Urea Nitrogen 29 mg/dL (9-20); Calcium 8.8 mg/dL (8.4-10.2); Carbon Dioxide 25 mmol/L (22-32); Chloride 109 mmol/L (98-107); Creatine Kinase 67 U/L (55-170); Estimated Glomerular Filt Rate > 60 mL/min (>60); Globulin 2.8 g/dL (1.7-4.1); Glucose 93 mg/dL (80-110); HEMOLYSIS < 15 (0-50); Lipase 135 U/L (23-300); Magnesium 2.1 mg/dL (1.6-2.3); Potassium 4.6 mmol/L (3.4-5.1); Sodium 139 mmol/L (137-145); Total Protein 6.9 g/dL (6.3-8.2)
[2023-11-13 13:10] LABS: NT-proBNP (BNP-Adult 18+) 1190 pg/mL (<125); Troponin I < 0.012 ng/mL (0.01-0.034)
--- NOTE | 2023-11-13 13:45 | PC.NURSE ---
Pt states that he has been feeling heart palpitations since last night. Reports feeling generalized weakness and some dizziness when he gets up to move around. Pt has hx of pericarditis and irregular heart beat. Denies and cp, SOB, difficulty breathing. Pt a&ox4.
--- NOTE | 2023-11-13 14:33 | ED.GENADULT ---
HPI - General Adult General Chief complaint: Weakness Stated complaint: Having Heart Issues Time Seen by Provider: 11/13/23 14:32 Source: patient, RN notes reviewed and old records reviewed Limitations: no limitations History of Present Illness HPI narrative: 73-year-old male with history of pericarditis, glaucoma who presents with complaint of sensation of irregular heartbeat starting last night into today. He states it is stopped about an hour after he woke up this morning. He states it has been much improved since then. States it felt very irregular sometimes fast sometimes not with strong beats. Denies any chest pain or pressure, no shortness of breath. He is felt lightheaded like he needs to put his head down but no syncope. States no fevers. No nausea or vomiting. No issues with the abdominal pain. Normal bowel movements. No black or bloody stools. He noted urinary frequency last night. Denies any new swelling in his extremities. States he has been treated for pericarditis 2 or 3 times. Has taken colchicine for this in the past. Current medications are only latanoprost eyedrops. Had history of prostate surgery in 2014, cholecystectomy. He has never had a cardiac catheter or interventions. No tobacco, alcohol or recreational drugs. He did see Cardiology about a year ago has a tele visit. Primary care is [facility] but patient lives on [place]. He is accompanied by family. Related Data Home Medications Medication Instructions Recorded Confirmed latanoprost 0.005 % eye drops drp EYE-BOTH DAILY 08/03/20 09/10/23 cholecalciferol (vitamin D3) 50 50 mcg PO DAILY 10/24/20 09/10/23 mcg (2,000 unit) capsule Allergies Allergy/AdvReac Type Severity Reaction Status Date / Time No Known Drug Allergies Allergy Verified 09/10/23 10:22 Review of Systems Review of Systems ROS Unobtainable: All systems reviewed & are unremarkable except as noted in HPI and below Patient History Medical History Cochlear implant in place Herniated nucleus pulposus, L3-4 left Lumbar spine pain Fractures (~1965) Mumps Chicken pox Tinnitus Hearing loss Glaucoma History of elevated PSA (~2014) Foraminal stenosis of lumbar region Personal history of prostate cancer (~2014) Back pain Surgical History Anesthesia History of surgery on arm (~1965) History of cholecystectomy (~2014) H/O radical prostatectomy (~2014) Family History Mother Mental health problem Social History household members: spouse Smoking Status: Never smoker alcohol intake: current Smoking Status: Never smoker alcohol intake frequency: a few times a week Substance Use Type: does not use Exam Narrative Exam Narrative: GEN: well nourished, well appearing male, alert and oriented x 3, patient appears to be in mild distress. HEENT: Atraumatic, pupils are equal round reactive to light, extraocular movements are intact, nares are clear, there is no conjunctival pallor. Throat is clear without any exudates, erythema, tonsillar enlargement or uvular deviation HEART: Regular rate and rhythm without murmur, clicks, rubs. Pulses are equal in upper and lower extremities. No edema bilateral lower extremities. No JVD. LUNGS:Lungs clear to auscultation, no wheezes, rales, crackles, chest moves symmetrically, no tachypnea or accessory muscle use. ABD:bowel sounds normal, soft, non-tender, no guarding, rebound, rigidity, no masses noted, no hepatosplenomegaly :No CVA tenderness MSCL: Non-tender, no muscle atrophy, muscles strength 5/5 upper and lower extremities, full range of motion, normal gait NEURO:CN 2-12 intact, sensation normal SKIN: No rash, erythema or other skin changes Initial Vital Signs Initial Vital Signs: Vital Signs Temperature 97.6 F 11/13/23 12:15 Pulse Rate 71 11/13/23 12:15 Respiratory Rate 20 11/13/23 12:15 Blood Pressure 90/61 11/13/23 12:15 Pulse Oximetry 98 11/13/23 12:15 Oxygen Delivery Method Room Air 11/13/23 12:15 Course Orders Ordered: ED Orders 11/13/23 12:23 XR chest 1V Stat EKG-12 Lead Stat 11/13/23 12:27 Complete Blood Count AUTO DIFF Stat Comprehensive Metabolic Panel Stat Lipase Stat Magnesium Stat NT-proBNP (BNP-Adult 18+) Stat PTT Partial Thromboplastin Moe Stat Prothrombin Time INR Stat Troponin & CK Cardiac Panel Stat 11/13/23 15:04 Trop I [Troponin I] Stat 11/13/23 15:47 EKG-12 Lead Routine Discontinued Medications Aspirin (Aspirin 81 Mg Chew Tab) 324 mg PO NOW ONE Stop: 11/13/23 12:24 Last Admin: 11/13/23 14:56 Dose: Not Given Documented By: KOFI Sodium Chloride (Normal Saline 0.9%) 1,000 mls @ 500 mls/hr IV BOLUS ONE Stop: 11/13/23 16:33 Last Admin: 11/13/23 14:40 Dose: Not Given Documented By: RON Sodium Chloride (Normal Saline 0.9%) 500 mls @ 1,000 mls/hr IV BOLUS ONE Stop: 11/13/23 15:09 Last Infusion: 11/13/23 16:49 Dose: Infused Documented By: Admin: 11/13/23 14:41 Dose: 1,000 mls/hr Documented By: RON Vital Signs Vital signs: Vital Signs - 8 hr 11/13/23 12:15 11/13/23 12:21 11/13/23 12:22 Temperature 97.6 F Pulse Rate 71 70 69 Respiratory Rate 20 Blood Pressure 90/61 Pulse Oximetry 98 96 98 Oxygen Delivery Method Room Air 11/13/23 12:22 11/13/23 12:30 11/13/23 12:30 Temperature Pulse Rate 59 L Respiratory Rate Blood Pressure 113/55 L 99/54 L Pulse Oximetry 97 Oxygen Delivery Method 11/13/23 13:00 11/13/23 13:00 11/13/23 13:30 Temperature Pulse Rate 55 L Respiratory Rate 16 Blood Pressure 96/56 L 96/51 L Pulse Oximetry 97 Oxygen Delivery Method 11/13/23 13:30 11/13/23 14:00 11/13/23 14:00 Temperature Pulse Rate 52 L 53 L Respiratory Rate 14 15 Blood Pressure 103/59 L Pulse Oximetry 98 97 Oxygen Delivery Method 11/13/23 14:30 11/13/23 14:30 11/13/23 15:30 Temperature Pulse Rate 52 L 52 L Respiratory Rate 15 Blood Pressure 102/55 L Pulse Oximetry 98 Oxygen Delivery Method 11/13/23 15:33 11/13/23 15:33 11/13/23 16:00 Temperature Pulse Rate 52 L 49 L Respiratory Rate 24 15 Blood Pressure 91/52 L Pulse Oximetry 99 100 Oxygen Delivery Method 11/13/23 16:01 11/13/23 16:01 11/13/23 16:30 Temperature Pulse Rate 49 L Respiratory Rate 15 Blood Pressure 113/59 L 97/53 L Pulse Oximetry 100 Oxygen Delivery Method 11/13/23 16:30 Temperature Pulse Rate 52 L Respiratory Rate 20 Blood Pressure Pulse Oximetry 100 Oxygen Delivery Method Medical Decision Making Lab Data 11/13/23 12:27 11/13/23 12:27 Labs: Lab Results 11/13/23 11/13/23 Range/Units 12:27 15:04 WBC 7.1 (4.5-11.0) X10^3/uL RBC 4.64 (4.5-5.9) X10^6/uL Hgb 13.7 (13.5-17.5) g/dL Hct 40.6 L (41-53) % MCV 87.6 (80-100) fL MCH 29.5 (26-34) PG MCHC 33.7 (30-36) % RDW 13.8 (11.6-14.8) % Plt Count 295 (150-400) X10^3/uL Neut % (Auto) 62.9 (50-75) % Lymph % (Auto) 25.9 (25-40) % Mcdowell % (Auto) 8.3 (3-14) % Eos % (Auto) 1.9 L (2-4) % Baso % (Auto) 1.0 (0-2) % Neut # (Auto) 4500 (9784-4714) /uL Lymph # (Auto) 1800 (9662-2603) /uL Mcdowell # (Auto) 600 (0-900) /uL Eos # (Auto) 100 (0-450) /uL Baso # (Auto) 100 (0-100) /uL PT 12.4 (9.4-12.5) SECONDS INR 1.1 (0.9-1.3) APTT 32 (25.1-36.5) SECONDS Sodium 139 (137-145) mmol/L Potassium 4.6 (3.4-5.1) mmol/L Chloride 109 H (98-107) mmol/L Carbon Dioxide 25 (22-32) mmol/L BUN 29 H (9-20) mg/dL Creatinine 0.78 (0.66-1.25) mg/dL Estimated GFR > 60 (>60) mL/min BUN/Creatinine Ratio 37.2 H (6-22) Glucose 93 (80-110) mg/dL Calcium 8.8 (8.4-10.2) mg/dL Magnesium 2.1 (1.6-2.3) mg/dL Total Bilirubin 0.7 (0.2-1.3) mg/dL AST 35 (17-59) IU/L ALT 43 (<50) IU/L Alkaline Phosphatase 66 (38-126) U/L Total Creatine Kinase 67 (55-170) U/L Troponin I < 0.012 < 0.012 (0.01-0.034) ng/mL NT-Pro-B Natriuret Pep 1190 H (<125) pg/mL Total Protein 6.9 (6.3-8.2) g/dL Albumin 4.1 (3.5-5.0) g/dL Globulin 2.8 (1.7-4.1) g/dL Albumin/Globulin Ratio 1.5 (1.0-2.8) Lipase 135 (23-300) U/L Urine Dip Bedside Urine Glucose Negative Bedside Urine Bilirubin - Negative Bedside Urine Ketone +/- 5 Urine Specific [place] 1.025 Bedside Urine Occult Blood - Negative Bedside Urine pH 5.5 Bedside Urine Protein - Negative Bedside Urine Urobilinogen - Negative Bedside Urine Nitrite - Negative Bedside Urine Leukocytes - Negative Esterase Point of care testing: Urine Dip Bedside Urine Glucose Negative Bedside Urine Bilirubin - Negative Bedside Urine Ketone +/- 5 Urine Specific [place] 1.025 Bedside Urine Occult Blood - Negative Bedside Urine pH 5.5 Bedside Urine Protein - Negative Bedside Urine Urobilinogen - Negative Bedside Urine Nitrite - Negative Bedside Urine Leukocytes - Negative Esterase Imaging Data Chest x-ray: Radiologist's Impression: Gaston Duenas??73??M??1950 ? Allergy/Adv: No Known Drug Allergies Close Chest X-Ray (Signed) Reji Moore - 11/13/23 Echocardiogram Ultrasound (Signed) Dianna Harris - 07/04/23 Chest CTA (Signed) Doris Cox - 07/04/23 Chest X-Ray (Signed) Aleksey Castro - 07/04/23 Shoulder X-Ray (Signed) Nii Choudhary - 03/12/23 Cervical Spine X-Ray (Signed) Nii Choudhary - 03/12/23 Head/Mastoid CT (Signed) PeralesAlec - 05/01/21 Injection Lumbar, Sacrum (Signed) Ruiz Bush - 03/14/21 Chest X-Ray (Signed) Doris Cox - 12/14/20 Injection Lumbar, Sacrum (Signed) Reynaldo Conroy - 11/22/20 Lumbar Spine X-Ray (Signed) MartínWilian - 10/24/20 Lumbar Spine MRI (Signed) CastroHaylee fernandezrody - 08/12/20 Launch?Image [address] [address] XRay Report Signed Patient: Gaston Duenas MR#: [id number] : 1950 Acct:[id number] Age/Sex: 73 / M Date of Service: 11/13/23 Loc: ED Accession Number: [id number] Procedure: XR chest 1V Ordering Provider: Dary Napier D.O. PROCEDURE: XR CHEST 1V INDICATIONS: chest pain TECHNIQUE: One view of the chest was acquired. COMPARISON: [facility], CR, XR CHEST 1V, 07/04/2023, 11:45. [facility], CR, XR CHEST 1V, 12/14/2020, 22:01. FINDINGS: Surgical changes and devices: None. Lungs and pleura: Lungs are clear. No pleural effusions or pneumothorax. Mediastinum: Mediastinal contours appear normal. Heart size is normal. Bones and chest wall: No suspicious bony lesions. Overlying soft tissues appear unremarkable. IMPRESSION: No acute cardiopulmonary abnormality is seen. Dictated by: Reji Moore M.D. on 11/13/2023 at 12:00 Approved by: Reji Moore M.D. on 11/13/2023 at 12:01 ECG Data Attestation: I personally reviewed and interpreted this ECG as follows: Interpretation: Sinus rhythm rate of 64, PA 134 QRS of 98 QTC 400, patient's EKG appears similar to prior from 07/04/2023 although V2 is inverted and was upright no other acute EKG changes noted. Sinus bradycardia rate of 50 PA 154 QRS of 98 QTC of 401, patient's EKG appears similar to prior from earlier today. Patient has same ST changes as before. [facility] Narrative Medical decision making narrative: 73-year-old male history of pericarditis but patient states he has had irregular heartbeat and felt dizzy no chest pain no shortness of breath. States it does not feel similar to when he would pericarditis. EKG appears similar to prior from June of 2023. First episode of pericarditis was before that. Repeat EKG appears similar with no significant ST changes from prior earlier today. Early Re pole versus diffuse ST elevation. Labs show count 7.1 hemoglobin of 13 platelets of 295, coags are negative, sodium is 109, BUN 29 creatinine normal 0.78 otherwise normal electrolytes with potassium 4.6 and calcium 8.8 and Mag 2.1, LFTs are negative troponins less than 0.012 BNP is 1190 Chest x-ray shows no acute change Point of care urine is negative Patient had echo in June of 2023 which showed sinus Yoseph with a rate of 40 to 50s EF of 55-60% mild MR and trace aortic regurg. Patient ambulated in the department. He is feels improved, blood pressure is improved with IV hydration. Discussed his findings from today, may have had a cardiac arrhythmia symptoms are not consistent with his prior episodes of pericarditis he has not had any chest pain or concerning changes for acute coronary syndrome. Discharge Plan Departure Patient Disposition: Home Clinical Impression: Palpitations Instructions: DI for Palpitations Activity Restrictions/Additional Instructions: Follow up with primary care and/or cardiology. Talk with your physician about having a ZIO patch or similar monitor. A short term alternative is the [employer]ia[employer] monitor. This does not replace an EKG or residential monitor such as ZIO patch but can be helpful for getting a telemetry or single lead rhythm strip. These are available online. Please return if you have recurrent irregular heartbeat that has not improving, fast heartbeat, new chest pain, shortness of breath, lightheadedness or passing out, persistent vomiting, new swelling of the extremities or other new or concerning changes. Prescriptions: No Action latanoprost 0.005 % drops EYE-BOTH DAILY cholecalciferol (vitamin D3) 50 mcg (2,000 unit) capsule 50 mcg PO DAILY Referrals: Pam Newsome MD [Primary Care Provider] - Bib Prado MD [Physician] - Abdirahman Myles MD [Physician] - Stand Alone Forms: Patient Portal/API
[2023-11-13] MEDS: SODIUM CHLORIDE 0.9% 500 ML 1000 ML IV (14:41)
--- NOTE | 2023-11-13 15:32 | PC.NURSE ---
Pt ambulated to independently bathroom with steady gait. Denies sob, dizziness, cp. Pt a&ox4.
--- NOTE | 2023-11-13 15:47 | EKG_ITS ---
[facility] [address] [place] [address] Test Date: 2023-11-13 Pat Name: Gaston Duenas Department: [facility] Room: Gender: Male Gate Guard: BHUMI : 1950 Requested By: Order Number: [id number] Reading MD: Gaston Sheppard MD Measurements Intervals [place] Rate: 50 P: 56 AR: 154 QRS: 47 QRSD: 98 T: 40 QT: 440 QTc: 401 Interpretive Statements Sinus bradycardia ST elevation, probably due to early repolarization Electronically Signed On 11-14-2023 7:59:00 PDT by Gaston Sheppard MD
[2023-11-13 15:48] LABS: Troponin I < 0.012 ng/mL (0.01-0.034)
== END 2023-11-13 16:59 | disposition home or self-care (01) ==
PROVIDERS: Emergency Provider Emergency Medicine; PCP Family Medicine
DX: R00.2 Palpitations (principal); R42 Dizziness and giddiness
CPT/HCPCS: 36415; 71045; 80053; 81003; 82550; 83690; 83735; 83880; 84484; 85025; 85610; 85730; 93005; 99284

== ENCOUNTER 2024-04-15 15:59 | Emergency (ER) | payer MEDICARE, OTHER, SELFPAY ==
[2024-04-15 16:56] VITALS: BP 97/64; PULSE 66; RESP 16; TEMP 36.7; O2SAT 98; BMI 22.4
--- NOTE | 2024-04-15 17:02 | DI.RAD.S_ITS ---
PROCEDURE: XR CHEST 1V INDICATIONS: chest pain TECHNIQUE: One view of the chest was acquired. COMPARISON: [facility], CR, XR CHEST 1V, 11/13/2023, 12:29. [facility], CR, XR CHEST 1V, 07/04/2023, 11:45. FINDINGS: Surgical changes and devices: None. Lungs and pleura: Lungs are clear. No pleural effusions or pneumothorax. Mediastinum: Mediastinal contours appear normal. Heart size is normal. Bones and chest wall: No suspicious bony lesions. Overlying soft tissues appear unremarkable. IMPRESSION: No acute cardiopulmonary abnormality is seen. Dictated by: Rehan Siddiqui M.D. on 04/15/2024 at 18:25 Approved by: Rehan Siddiqui M.D. on 04/15/2024 at 18:26
--- NOTE | 2024-04-15 17:02 | EKG_ITS ---
[place] [address] [address] [address] Test Date: 2024-04-15 Pat Name: Gaston Duenas Department: Room: Gender: Male Interactive Marketing Strategist: JOCE : 1950 Requested By: Order Number: [id number] Reading MD: Jean Steve Measurements Intervals [place] Rate: 65 P: 49 NC: 112 QRS: 53 QRSD: 100 T: 41 QT: 368 QTc: 382 Interpretive Statements Normal sinus rhythm Early repolarization Electronically Signed On 04-16-2024 7:28:26 PST by Jean Steve
[2024-04-15 17:30] LABS: Add Manual Diff / Slide Review NO; Basophils Absolute Auto 100 /uL (0-100); Basophils Percent Auto 1.1 % (0-2); Eosinophils Absolute Auto 300 /uL (0-450); Eosinophils Percent Auto 3.5 % (2-4); Hematocrit 42.8 % (41-53); Hemoglobin 14.1 g/dL (13.5-17.5); Lymphocytes Absolute Auto 1600 /uL (1100-4500); Mean Corpuscular Hemoglobin 28.9 PG (26-34); Mean Corpuscular Volume 87.8 fL (80-100); Monocytes Absolute Auto 700 /uL (0-900); Monocytes Percent Auto 9.2 % (3-14); Neutrophils Absolute Auto 4800 /uL (1500-7000); Neutrophils Percent Auto 64.2 % (50-75); Platelet Count 329 X10^3/uL (150-400); Red Blood Cell Count 4.88 X10^6/uL (4.5-5.9); Red Cell Distribution Width 13.9 % (11.6-14.8); White Blood Cell Count 7.4 X10^3/uL (4.5-11.0)
[2024-04-15 17:36] LABS: Prothrombin Time 11.3 SECONDS (9.4-12.5)
[2024-04-15 17:38] LABS: PTT Partial Thromboplastin Tim 34 SECONDS (25.1-36.5)
[2024-04-15 17:41] LABS: Alanine Aminotransferase 42 IU/L (<50); Albumin 4.2 g/dL (3.5-5.0); Albumin Globulin Ratio 1.4 (1.0-2.8); Alkaline Phosphatase 97 U/L (38-126); Aspartate Aminotransferase 47 IU/L (17-59); BUN Creatinine Ratio 23.8 (6-22); Bilirubin Total 0.3 mg/dL (0.2-1.3); Blood Urea Nitrogen 19 mg/dL (9-20); Calcium 9.3 mg/dL (8.4-10.2); Carbon Dioxide 29 mmol/L (22-32); Chloride 107 mmol/L (98-107); Creatine Kinase 48 U/L (55-170); Estimated Glomerular Filt Rate > 60 mL/min (>60); Globulin 3.1 g/dL (1.7-4.1); Glucose 99 mg/dL (80-110); HEMOLYSIS < 15 (0-50); Lipase 120 U/L (23-300); Magnesium 2.1 mg/dL (1.6-2.3); Potassium 4.3 mmol/L (3.4-5.1); Sodium 141 mmol/L (137-145); Total Protein 7.3 g/dL (6.3-8.2)
[2024-04-15 17:53] LABS: NT-proBNP (BNP-Adult 18+) 333 pg/mL (<125); Troponin I < 0.012 ng/mL (0.01-0.034)
[2024-04-15] MEDS: ASPIRIN 81 MG CHEW TAB 324 MG PO (18:56)
--- NOTE | 2024-04-15 19:06 | PC.NURSE ---
Pt reports he was pushing a wheelbarrow and felt his heart become fast and irregular and felt lightheaded/dizzy for 4 hours. His phone showed potential Afib. Pt reports has seen a head of partner development who told him he had an irregular heartbeat less than 1% of the time. Not on thinners. Pt reports symptoms have resolved since being here. Denies chest pain. Denies SOB.
--- NOTE | 2024-04-15 19:14 | ED.ARRPALP ---
HPI - Arrhythmia/Palpitations General Chief Complaint: Arrhythmia/Palpitations Stated Complaint: afib Time Seen by Provider: 04/15/24 18:43 Source: patient Mode of arrival: Ambulatory History of Present Illness HPI narrative: 73-year-old male with no reported past medical history presents by private vehicle for palpitations experienced earlier today. Patient states that he has felt palpitations in the past, and has even worn a monitor for them, but no cause has ever been found. He states it has been several years since an incident like this has occurred. Today while pushing a wheelbarrow the patient felt short of breath and like his heart was racing. He used a Kardia device that showed that he was in atrial fibrillation at a rate of approximately 140 beats per minute. He states that this lasted around 3 hours and resolved on its own. Because he lives on [place] he decided to come in for evaluation. Saw Dr. Hernandez through [facility] cardiology 12/04/23, who recommended the Kardia device Related Data Home Medications Medication Instructions Recorded Confirmed latanoprost 0.005 % eye drops drp EYE-BOTH DAILY 08/03/20 09/10/23 cholecalciferol (vitamin D3) 50 50 mcg PO DAILY 10/24/20 09/10/23 mcg (2,000 unit) capsule Previous Rx's Medication Instructions Recorded apixaban 5 mg tablet (Eliquis) 5 mg PO BID #90 tabs 04/15/24 metoprolol tartrate 25 mg tablet 25 mg PO DAILY PRN tachycardia #30 04/15/24 tabs Allergies Allergy/AdvReac Type Severity Reaction Status Date / Time No Known Drug Allergies Allergy Verified 09/10/23 10:22 Patient History Medical History Cochlear implant in place Herniated nucleus pulposus, L3-4 left Lumbar spine pain Fractures (~1965) Mumps Chicken pox Tinnitus Hearing loss Glaucoma History of elevated PSA (~2014) Foraminal stenosis of lumbar region Personal history of prostate cancer (~2014) Back pain Surgical History Anesthesia History of surgery on arm (~1964) History of cholecystectomy (~2014) H/O radical prostatectomy (~2014) Family History Mother Mental health problem Social History household members: spouse Smoking Status: Never smoker alcohol intake: current Smoking Status: Never smoker alcohol intake frequency: a few times a week Exam Initial Vital Signs Initial Vital Signs: Vital Signs Temperature 98.0 F 04/15/24 16:56 Pulse Rate 66 04/15/24 16:56 Respiratory Rate 16 04/15/24 16:56 Blood Pressure 97/64 04/15/24 16:56 Pulse Oximetry 98 04/15/24 16:56 Oxygen Delivery Method Room Air 04/15/24 16:56 Const: Awake, alert, no acute distress, nontoxic appearing Cardiac: regular rate, regular rhythm RESP: unlabored, clear bilaterally, no wheezing Skin: Warm, Dry, intact, no rashes Neuro: AO x3, CN II-XII grossly intact, moves all extremities Course Orders Ordered: ED Orders 04/15/24 17:02 XR chest 1V Stat EKG-12 Lead Stat 04/15/24 17:09 Complete Blood Count AUTO DIFF Stat Comprehensive Metabolic Panel Stat Lipase Stat Magnesium Stat NT-proBNP (BNP-Adult 18+) Stat PTT Partial Thromboplastin Moe Stat Prothrombin Time INR Stat Troponin & CK Cardiac Panel Stat Discontinued Medications Aspirin (Aspirin 81 Mg Chew Tab) 324 mg PO NOW ONE Stop: 04/15/24 17:03 Last Admin: 04/15/24 18:56 Dose: 324 mg Documented By: SB Vital Signs Vital signs: Vital Signs - 8 hr 04/15/24 16:56 04/15/24 19:52 Temperature 98.0 F Pulse Rate 66 57 L Respiratory Rate 16 14 Blood Pressure 97/64 107/57 L Pulse Oximetry 98 96 Oxygen Delivery Method Room Air Room Air MDM - Arrhythmia/Palpitations Differential Diagnosis Differential diagnosis: Likely palpitations, artial fibrillation and ventricular premature beats Lab Data 04/15/24 17:09 04/15/24 17:09 Labs: Lab Results 04/15/24 Range/Units 17:09 WBC 7.4 (4.5-11.0) X10^3/uL RBC 4.88 (4.5-5.9) X10^6/uL Hgb 14.1 (13.5-17.5) g/dL Hct 42.8 (41-53) % MCV 87.8 (80-100) fL MCH 28.9 (26-34) PG MCHC 33.0 (30-36) % RDW 13.9 (11.6-14.8) % Plt Count 329 (150-400) X10^3/uL Neut % (Auto) 64.2 (50-75) % Lymph % (Auto) 22.0 L (25-40) % Morrison % (Auto) 9.2 (3-14) % Eos % (Auto) 3.5 (2-4) % Baso % (Auto) 1.1 (0-2) % Neut # (Auto) 4800 (7975-6145) /uL Lymph # (Auto) 1600 (3198-6550) /uL Morrison # (Auto) 700 (0-900) /uL Eos # (Auto) 300 (0-450) /uL Baso # (Auto) 100 (0-100) /uL PT 11.3 (9.4-12.5) SECONDS INR 1.0 (0.9-1.3) APTT 34 (25.1-36.5) SECONDS Sodium 141 (137-145) mmol/L Potassium 4.3 (3.4-5.1) mmol/L Chloride 107 (98-107) mmol/L Carbon Dioxide 29 (22-32) mmol/L BUN 19 (9-20) mg/dL Creatinine 0.80 (0.66-1.25) mg/dL Estimated GFR > 60 (>60) mL/min BUN/Creatinine Ratio 23.8 H (6-22) Glucose 99 (80-110) mg/dL Calcium 9.3 (8.4-10.2) mg/dL Magnesium 2.1 (1.6-2.3) mg/dL Total Bilirubin 0.3 (0.2-1.3) mg/dL AST 47 (17-59) IU/L ALT 42 (<50) IU/L Alkaline Phosphatase 97 (38-126) U/L Total Creatine Kinase 48 L (55-170) U/L Troponin I < 0.012 (0.01-0.034) ng/mL NT-Pro-B Natriuret Pep 333 H (<125) pg/mL Total Protein 7.3 (6.3-8.2) g/dL Albumin 4.2 (3.5-5.0) g/dL Globulin 3.1 (1.7-4.1) g/dL Albumin/Globulin Ratio 1.4 (1.0-2.8) Lipase 120 (23-300) U/L ECG Data Interpretation: Normal sinus rhythm at 65 beats per minute. Normal MI. No ST T wave changes, no STEMI MDM Narrative Medical decision making narrative: Well-appearing patient with 3 hours of fast heart rate at home. Patient showed me the reading on his phone that does appear to show persistent tachycardia and does appear to be irregular in the pattern of atrial fibrillation, however this is only a 2 lead tracing. Patient currently sinus rhythm, approximately 50-65 beats per minute. Patient was denying symptoms at this time. Laboratory work is reviewed, no acute abnormalities identified. Electrolytes within normal limits, chest x-ray negative for acute findings, throughout patient's stay in the emergency department he has not had a return of palpitations or fast heart rate and has remained in sinus rhythm. Chads 2 Vasc score calculated, patient scores a 1 based solely on his age. He was no known other risk factors including diabetes, hypertension, vascular disease, congestive heart failure. Risks and benefits of starting anticoagulation discussed with the patient and significant other at bedside. Patient stated that he would like to have the prescription of Eliquis, but at this time he will defer starting this medication until further discussion with Cardiology. Patient was given a prescription for low-dose metoprolol if [place] sustained [place] He was instructed that if this does not break his palpitations or tachycardia then he should come back to the ER for evaluation. Patient requested a different cardiology referral as he did not feel he had good rapport with the previous thermoforming operator. Referral phone number provided. Discharge Plan Departure Patient Disposition: Home Clinical Impression: Atrial fibrillation Instructions: DI for Atrial Fibrillation Activity Restrictions/Additional Instructions: Based on your cardiac reading earlier in the day you did have an episode of atrial fibrillation. While you has been in the emergency department your heart rate has been normal sinus rhythm. Overall you are considered low risk, with your risk of stroke 1.5/100 people. Based on our conversation today blood thinners are deferred at this time. If you would like to have them on hand a prescription has been sent to the [facility] in [place]. In addition I am sending a prescription of a medication called metoprolol to the pharmacy. This medication can be taken if you feel your heart rate greater than 100. If your heart rate does not decrease with this medication after about 30 minutes then it would be cordero to come back to the ER for evaluation. Please make a follow up appointment with Cardiology. Further recommendations for medications and blood thinners can be discussed with the thermoforming operator at a later date. If you decide to start blood thinners at home be advised that these medications put you at risk of bruising and bleeding. If you injure yourself, especially hitting your head, you should come back to the ER for evaluation as this puts you at increased risk of bleeding in your brain. Prescriptions: New Eliquis 5 mg tablet 5 mg PO BID Qty: 90 0RF metoprolol tartrate 25 mg tablet 25 mg PO DAILY PRN (Reason: tachycardia) Qty: 30 0RF Rx Instructions: For heart rate >100bpm No Action latanoprost 0.005 % drops EYE-BOTH DAILY cholecalciferol (vitamin D3) 50 mcg (2,000 unit) capsule 50 mcg PO DAILY Referrals: Ahmet Resendiz MD [Physician] - Pam Newsome MD [Primary Care Provider] - Stand Alone Forms: Patient Portal/API/Survey
--- NOTE | 2024-04-15 19:30 | PC.NURSE ---
Dr. Espinal at bedside
[2024-04-15 19:52] VITALS: BP 107/57; PULSE 57; RESP 14; O2SAT 96
== END 2024-04-15 19:57 | disposition home or self-care (01) ==
PROVIDERS: Emergency Medicine; Emergency Provider Emergency Medicine; PCP Family Medicine
DX: I48.91 Unspecified atrial fibrillation (principal); Z79.01 Long term (current) use of anticoagulants
CPT/HCPCS: 36415; 71045; 80053; 82550; 83690; 83735; 83880; 84484; 85025; 85610; 85730; 93005; 99284

== ENCOUNTER → 2024-05-25 11:25 | Outpatient (CLI) | payer MEDICARE, OTHER, SELFPAY | PROVIDERS: PCP Family Medicine; Visit Provider Nurse Practitioner Family | DX: R30.0 Dysuria (principal) | CPT/HCPCS: 87077; 87086; 87186; 87210 ==

== ENCOUNTER → 2025-04-14 15:05 | Outpatient (CLI) | payer MEDICARE, OTHER, SELFPAY ==
--- NOTE | 2025-04-14 15:06 | DI.RAD.S_ITS ---
PROCEDURE: XR FINGER RT MIN 2V INDICATIONS: Table saw lac 6D ago distal/lateral digit w/ damage to nail TECHNIQUE: AP hand, 2 views of the 2nd finger(s) acquired. COMPARISON: None. FINDINGS: Bones: No fractures or dislocations. No suspicious bony lesions. Soft tissues: No suspicious soft tissue calcifications. IMPRESSION: No acute 2nd finger fracture or dislocation. No radiopaque foreign bodies. Dictated by: Wilian Resendiz M.D. on 04/14/2025 at 15:24 Approved by: Wilian Resendiz M.D. on 04/14/2025 at 15:26
== END ==
PROVIDERS: PCP Family Medicine; Referring Provider Student in an Organized Health Care Education/Training Program; Visit Provider Student in an Organized Health Care Education/Training Program
DX: S61.212A Laceration without foreign body of right middle finger without damage to nail, initial encounter (principal); W31.2XXA Contact with powered woodworking and forming machines, initial encounter
CPT/HCPCS: 73140